=== PATIENT | male | born 1965 | race Caucasian/White ===

== ENCOUNTER 2022-10-14 09:23 | Inpatient (IN) | payer OTHER, SELFPAY ==
[2022-10-14] VITALS (28 sets, daily range): BP systolic 81–133; BP diastolic 45–70; PULSE 78–107; RESP 16–26; TEMP 36.4–38; O2SAT 86–95; BMI 37.3; BMI 31.8
--- NOTE | 2022-10-14 10:02 | ED_ITS ---
HPI - General Adult General Time Seen by Provider: 10:03 Date Seen: 10/14/22 Chief complaint: Neuro Symptoms/Altered Deficit Stated complaint: Confused Time Seen by Provider: 10/14/22 10:02 Source: patient and RN notes reviewed Mode of arrival: ambulatory Limitations: no limitations History of Present Illness HPI narrative: Patient is a 57-year-old male that is brought in by his sister for concern of increasing confusion and sleepiness in the setting of head and neck squamous cell carcinoma. He completed radiation today at the [facility] across the road, was supposed to have chemotherapy after that but they did not feel he was well enough and the radiation center referred him here. He states he has some underlying chest discomfort that has been there since after starting radiation last week. He had head neck dissection cancer removal in it trach in August for this surgery. Chemotherapy and radiation therapy commenced last week per report. He denies any difficulty breathing but nursing staff noted he was 88% on room air on arrival. His sister states he is not on oxygen at home. His systolic blood pressure was 91 when I came in to see him. He really has not been eating or drinking much per report but no nausea, vomiting, diarrhea, urinary symptoms noted. They note that he may have some oral thrush again. He has 2 oncology notes in our system which were briefly reviewed. He has not drank any alcohol in a couple of days his he has not been feeling good enough. Baseline does drink a moderate amount per report. He has been taking some pain medicines as well as a benzodiazepine. Does not sound like doses have been increased. Related Data Home Medications Medication Instructions Recorded Confirmed amlodipine 10 mg tablet 10 mg PO QDAY 09/26/22 10/07/22 escitalopram oxalate 10 mg tablet 10 mg PO QDAY 09/26/22 10/07/22 famotidine 40 mg/5 mL (8 mg/mL) 5 ml PO QDAY 09/26/22 10/07/22 oral suspension insulin NPH-regular 70-30 U-100 subcut 09/26/22 10/07/22 insulin 100 unit/mL subcutaneous pen (Novolin 70-30 FlexPen U-100 Insulin) isosorbide mononitrate 60 mg mg PO 09/26/22 10/07/22 tablet,extended release 24 hr lactulose 10 gram/15 mL oral 15 ml PO PRN 09/26/22 10/07/22 solution lancets (OneTouch UltraSoft #100 ea 09/26/22 10/07/22 Lancets) lisinopril 10 mg tablet 10 mg PO QDAY 09/26/22 10/07/22 lorazepam 1 mg tablet 1 mg PO PRN 09/26/22 10/07/22 metformin 500 mg tablet,extended mg PO 09/26/22 10/07/22 release 24 hr metoprolol succinate 100 mg mg PO 09/26/22 10/07/22 tablet,extended release 24 hr morphine 15 mg tablet,extended ea PO 09/26/22 10/07/22 release nystatin 100,000 unit/mL oral ml PO QID PRN 09/26/22 10/07/22 suspension oxycodone 5 mg tablet 5 mg PO Q6H PRN 09/26/22 10/07/22 Previous Rx's Medication Instructions Recorded ondansetron 8 mg disintegrating 8 mg PO Q8H PRN nausea and 09/26/22 tablet vomiting #30 tabs prochlorperazine maleate 10 mg 10 mg PO TID PRN nausea and 09/26/22 tablet (Compazine) vomiting #30 tabs Allergies Allergy/AdvReac Type Severity Reaction Status Date / Time No Known Drug Allergies Allergy Verified 10/14/22 09:40 Review of Systems Status of ROS: Reports: 10 or more systems reviewed and unremarkable except as noted in History and below [facility] Medical History (Updated 10/14/22 @ 12:26 by Doretha Salcedo MD) Cancer of oral cavity Cellulitis of arm Chronic pain syndrome COPD (chronic obstructive pulmonary disease) Diabetes mellitus HTN (hypertension) Hyperlipidemia Surgical History (Updated 09/27/22 @ 16:43 by Sarah Bryant APRN) H/O lumbosacral spine surgery H/O skin graft H/O umbilical hernia repair History of carpal tunnel release S/P cervical spinal fusion S/P eye surgery S/P partial glossectomy Status post tracheostomy Social History Smoking Status: Current every day smoker What tobacco products do you use: cigarettes Smoking packs per day: 0.5 Smoking cigarettes per day: 10.0 Do you use any of these nicotine containing products: None Second hand tobacco smoke exposure: No How often do you have a drink containing alcohol: 4 or more times a week How many standard drinks containing alcohol do you have on a typical day: 7 to 9 How often do you have six or more drinks on one occasion: Daily or almost daily AUDIT-C Alcohol total score: 11 Non-prescribed substance use: marijuana (any form) service: No Exam Const: Vital Signs, click to edit/add: Vital Signs - 24 hr 10/14/22 09:40 10/14/22 10:43 10/14/22 10:33 Temperature 97.5 F L Pulse Rate 93 Pulse Rate [Pulse Oximeter] 107 H Respiratory Rate 16 Blood Pressure Blood Pressure [Ri ght Upper Arm] 101/55 L Pulse Oximetry 88 89 86 L Oxygen Delivery Me thod Room Air Nasal Cannula Oxygen Flow Rate 3 10/14/22 10:45 10/14/22 10:46 10/14/22 11:00 Temperature Pulse Rate 93 95 89 Pulse Rate [Pulse Oximeter] Respiratory Rate Blood Pressure 90/47 L Blood Pressure [Ri ght Upper Arm] Pulse Oximetry 90 90 92 Oxygen Delivery Me thod Nasal Cannula Nasal Cannula Nasal Cannula Oxygen Flow Rate 3 3 3 10/14/22 11:02 10/14/22 11:15 10/14/22 11:16 Temperature Pulse Rate 92 94 96 Pulse Rate [Pulse Oximeter] Respiratory Rate Blood Pressure 81/51 L 94/65 Blood Pressure [Ri ght Upper Arm] Pulse Oximetry 93 94 94 Oxygen Delivery Me thod Nasal Cannula Oxygen Flow Rate 3 10/14/22 11:17 10/14/22 11:30 10/14/22 11:32 Temperature Pulse Rate 99 92 90 Pulse Rate [Pulse Oximeter] Respiratory Rate Blood Pressure 91/45 L Blood Pressure [Ri ght Upper Arm] Pulse Oximetry 94 93 93 Oxygen Delivery Me thod Oxygen Flow Rate 10/14/22 11:45 10/14/22 11:46 10/14/22 11:58 Temperature Pulse Rate 78 95 98 Pulse Rate [Pulse Oximeter] Respiratory Rate Blood Pressure 89/61 L 87/51 L Blood Pressure [Ri ght Upper Arm] Pulse Oximetry 92 93 91 Oxygen Delivery Me thod Oxygen Flow Rate 10/14/22 12:00 10/14/22 12:01 Temperature Pulse Rate 93 90 Pulse Rate [Pulse Oximeter] Respiratory Rate Blood Pressure 102/64 Blood Pressure [Ri ght Upper Arm] Pulse Oximetry 91 91 Oxygen Delivery Me thod Oxygen Flow Rate Documenting provider has reviewed patient's vital signs: yes Common normals: no apparent distress, average body habitus, oriented x3 and no limitations General appearance: ill appearing and frail appearing Other: Seems very sleepy but is easily arousable. HENMT: Common normals: normocephalic, head/scalp atraumatic, hearing grossly normal bilaterally and external ears normal Head and scalp: normocephalic and atraumatic External ear: external ears normal Other: Dry mucosa with alteration of the oral anatomy, peers part of tongue is gone. Mucosa is dry but there certainly is some whitish exudate that could be thrush. Eye: Common normals: PERRL, EOMs intact bilaterally, conjunctivae normal and no scleral icterus Conjunctiva: conjunctiva(e) normal Pupil: PERRL Neck & C-Spine: Common normals: full ROM, no lymphadenopathy, supple, no meningeal signs, no JVD and thyroid normal Thyroid: thyroid normal Chest: Common normals: inspection of chest normal and palpation of chest normal Resp: Common normals: normal respiratory effort, no retractions, no use of accessory muscles and clear to auscultation bilaterally (Anteriorly only, patient was too weak to sit up and I was in the room alone) Auscultation: clear to auscultation bilaterally (Anteriorly only, patient was too weak to sit up and I was in the room alone) Cardio: Common normals: no JVD, regular rhythm, S1 normal heart sound, S2 normal heart sound, no gallops, no clicks and no murmurs Rate: tachycardic Rhythm: regular rhythm Heart sounds: S1 normal and S2 normal GI: Common normals: Normal to inspection, nondistended, normoactive bowel sounds present, soft to palpation, non-tender, no hepatosplenomegaly and no masses Palpation: soft and no hepatosplenomegaly Neuro: Common normals: oriented x3, moves all extremities, no focal motor deficits and no sensory deficits noted Meningeal signs: no meningeal signs Course Course Hospital Course: This patient is presenting hypotensive, sleepy. He certainly is on medicines that could cause some of this but need to rule out infection. He really has nothing specific. He states he does hurt in his chest some but that is been ongoing after the radiation. Radiation pneumonitis is a possibility and possibly poor oral oral intake contributing to worsening hemodynamic status. We will proceed with infection workup however. Reevaluation(s) Reevaluation #1: Have reviewed with patient and his sister that I think there is pneumonia developing, his blood pressure is currently low at this time 89/61. His pulse is 97 which is improved, O2 sats 93% on 3 L nasal cannula. I have already ordered vancomycin and Zosyn, will alert the nursing staff to get this ordered. I will order another L of normal saline over 1 hour. Time: 11:50 Reevaluation #2: Patient is just receiving his 2 L of fluid right now. With sitting up and attempt to urinate. Antibiotics have not been started as nursing staff I believe was waiting to obtain urine. Patient states he does not have to urinate. Advise nursing staff that I do want patient to have his antibiotics started. We certainly have a focus on his chest x-ray with pneumonia. With changes of sepsis, it is imperative that we get the antibiotics started even if we do not have the urine. I calculate his 30 mils per kilos volume to be about 3500, he will have to have the rest of this instilled on the hospital floor as he is leaving shortly. Followup lactate will need to be done there as well. Time: 12:35 Consultations Consultation #1: Have spoken with the hospitalist Dr. Russ. We have discussed the situation. There are changes on his right chest x-ray that would signify pneumonia to me. Will await Radiology over-read. D-dimer is still pending. He may need a chest CT PE protocol. Otherwise, will initiate antibiotics with vancomycin and Zosyn to cover for sepsis with pneumonia as a source. May need to consider steroids but will leave that up to the hospitalist. Radiation pneumonitis certainly could be compounding the situation. Time: 11:44 Vital Signs Vital signs: Initial Vital Signs Temperature 97.5 F L 10/14/22 09:40 Temperature Source Temporal Artery Scan 10/14/22 09:40 Pulse Rate 107 H 10/14/22 09:40 Pulse Rhythm 10/14/22 09:40 Pulse Strength 3+ Normal 10/14/22 09:40 Respiratory Rate 16 10/14/22 09:40 Blood Pressure 101/55 L 10/14/22 09:40 Blood Pressure Mean 70 10/14/22 09:40 Blood Pressure Position Sitting 10/14/22 09:40 Pulse Oximetry 88 10/14/22 09:40 Oxygen Delivery Method 10/14/22 09:40 Vital Signs Temperature 97.5 F L 10/14/22 09:40 Pulse Rate 107 H 10/14/22 09:40 Respiratory Rate 16 10/14/22 09:40 Blood Pressure 101/55 L 10/14/22 09:40 Pulse Oximetry 88 10/14/22 09:40 Oxygen Delivery Method 10/14/22 09:40 Temperature 97.5 F L 10/14/22 09:40 Pulse Rate 92 10/14/22 12:44 Respiratory Rate 16 10/14/22 09:40 Blood Pressure 102/64 10/14/22 12:01 Pulse Oximetry 92 10/14/22 12:44 Oxygen Delivery Method 10/14/22 11:02 Oxygen Flow Rate 3 10/14/22 11:02 Medical Decision Making Lab Data Labs: Lab Results 10/14/22 10/14/22 10/14/22 Range/Units 10:10 10:10 10:10 WBC 11.64 H (4.50-11.00) K/uL RBC 4.39 (4.30-5.90) m/uL Hgb 13.3 L (13.5-17.5) gm/dL Hct 40.6 (37.0-53.0) % MCV 93 (80-100) fL MCH 30 (26-34) pg MCHC 33 (32-36) gm/dL RDW Coeff of Ivan 12.4 (11.5-15.5) % Plt Count 268 (140-440) K/uL Neut % (Auto) 80.0 H (42.0-72.0) % Lymph % (Auto) 7.6 L (20-44) % [place] % (Auto) 11.9 H (0.0-11.0) % Eos % (Auto) 0.0 (0.0-7.0) % Baso % (Auto) 0.1 (0.0-3.0) % Neut # (Auto) 9.30 H (1.7-7.0) K/uL Lymph # (Auto) 0.90 (0.90-2.90) K/uL [place] # (Auto) 1.40 H (0.00-0.90) K/UL Eos # (Auto) 0.00 (0.00-0.50) K/uL Baso # (Auto) 0.00 (0.00-0.30) K/uL Abs Immat Gran (auto) 0.00 (0.00-0.30) K/uL Imm/Tot Granulo (auto) 0.4 % D-Dimer Quant (PE/DVT) 0.72 H (0.00-0.50) ug/ml VBG pH (7.32-7.43) VBG pCO2 (40-50) mmHG VBG pO2 (25-47) mmHG VBG HCO3 (21-28) mmol/L Sodium 130 L (135-149) mmol/L Potassium 4.8 (3.6-5.1) mmol/L Chloride 92 L (96-114) mmol/L Carbon Dioxide 30 (20-32) mmol/L BUN 21 (7-30) mg/dL Creatinine 0.7 (0.5-1.5) mg/dL Estimated Creat Clear 117.32 Estimated GFR 106 ml/min Glucose 319 H (60-115) mg/dL Lactate (0.5-1.9) mmol/L Calcium 9.5 (8.4-10.6) mg/dL Magnesium (1.5-2.6) mg/dL Total Bilirubin 0.8 (0.1-1.5) mg/dL AST 20 (12-35) U/L ALT 25 (4-50) U/L Alkaline Phosphatase 78 (40-150) U/L C-Reactive Protein 8.7 H (0.5-1.0) mg/dL NT-Pro-B Natriuret Pep (0-125) PG/mL Total Protein 7.0 (6.0-8.3) g/dL Albumin 4.0 (3.3-5.0) g/dL Procalcitonin (<0.50) ng/mL Ethyl Alcohol (0.01-0.03) % SARS-CoV-2 (PCR) (Negative) Influenza Type A (PCR) (Negative) Influenza Type B (PCR) (Negative) RSV (PCR) (Negative) POC Troponin I (0.01-0.04) ng/ml 10/14/22 10/14/22 10/14/22 Range/Units 10:10 10:10 10:10 WBC (4.50-11.00) K/uL RBC (4.30-5.90) m/uL Hgb (13.5-17.5) gm/dL Hct (37.0-53.0) % MCV (80-100) fL MCH (26-34) pg MCHC (32-36) gm/dL RDW Coeff of Ivan (11.5-15.5) % Plt Count (140-440) K/uL Neut % (Auto) (42.0-72.0) % Lymph % (Auto) (20-44) % [place] % (Auto) (0.0-11.0) % Eos % (Auto) (0.0-7.0) % Baso % (Auto) (0.0-3.0) % Neut # (Auto) (1.7-7.0) K/uL Lymph # (Auto) (0.90-2.90) K/uL [place] # (Auto) (0.00-0.90) K/UL Eos # (Auto) (0.00-0.50) K/uL Baso # (Auto) (0.00-0.30) K/uL Abs Immat Gran (auto) (0.00-0.30) K/uL Imm/Tot Granulo (auto) % D-Dimer Quant (PE/DVT) (0.00-0.50) ug/ml VBG pH 7.427 (7.32-7.43) VBG pCO2 49 (40-50) mmHG VBG pO2 38.3 (25-47) mmHG VBG HCO3 32 H (21-28) mmol/L Sodium (135-149) mmol/L Potassium (3.6-5.1) mmol/L Chloride (96-114) mmol/L Carbon Dioxide (20-32) mmol/L BUN (7-30) mg/dL Creatinine (0.5-1.5) mg/dL Estimated Creat Clear Estimated GFR ml/min Glucose (60-115) mg/dL Lactate 1.9 (0.5-1.9) mmol/L Calcium (8.4-10.6) mg/dL Magnesium 1.5 (1.5-2.6) mg/dL Total Bilirubin (0.1-1.5) mg/dL AST (12-35) U/L ALT (4-50) U/L Alkaline Phosphatase (40-150) U/L C-Reactive Protein (0.5-1.0) mg/dL NT-Pro-B Natriuret Pep 167 H (0-125) PG/mL Total Protein (6.0-8.3) g/dL Albumin (3.3-5.0) g/dL Procalcitonin 1.58 H (<0.50) ng/mL Ethyl Alcohol < 0.01 L (0.01-0.03) % SARS-CoV-2 (PCR) Negative SARS-CoV-2 (Negative) Influenza Type A (PCR) Negative PCR FLU A (Negative) Influenza Type B (PCR) Negative PCR FLU B (Negative) RSV (PCR) Negative PCR RSV (Negative) POC Troponin I (0.01-0.04) ng/ml 10/14/22 Range/Units 10:43 WBC (4.50-11.00) K/uL RBC (4.30-5.90) m/uL Hgb (13.5-17.5) gm/dL Hct (37.0-53.0) % MCV (80-100) fL MCH (26-34) pg MCHC (32-36) gm/dL RDW Coeff of Ivan (11.5-15.5) % Plt Count (140-440) K/uL Neut % (Auto) (42.0-72.0) % Lymph % (Auto) (20-44) % [place] % (Auto) (0.0-11.0) % Eos % (Auto) (0.0-7.0) % Baso % (Auto) (0.0-3.0) % Neut # (Auto) (1.7-7.0) K/uL Lymph # (Auto) (0.90-2.90) K/uL [place] # (Auto) (0.00-0.90) K/UL Eos # (Auto) (0.00-0.50) K/uL Baso # (Auto) (0.00-0.30) K/uL Abs Immat Gran (auto) (0.00-0.30) K/uL Imm/Tot Granulo (auto) % D-Dimer Quant (PE/DVT) (0.00-0.50) ug/ml VBG pH (7.32-7.43) VBG pCO2 (40-50) mmHG VBG pO2 (25-47) mmHG VBG HCO3 (21-28) mmol/L Sodium (135-149) mmol/L Potassium (3.6-5.1) mmol/L Chloride (96-114) mmol/L Carbon Dioxide (20-32) mmol/L BUN (7-30) mg/dL Creatinine (0.5-1.5) mg/dL Estimated Creat Clear Estimated GFR ml/min Glucose (60-115) mg/dL Lactate (0.5-1.9) mmol/L Calcium (8.4-10.6) mg/dL Magnesium (1.5-2.6) mg/dL Total Bilirubin (0.1-1.5) mg/dL AST (12-35) U/L ALT (4-50) U/L Alkaline Phosphatase (40-150) U/L C-Reactive Protein (0.5-1.0) mg/dL NT-Pro-B Natriuret Pep (0-125) PG/mL Total Protein (6.0-8.3) g/dL Albumin (3.3-5.0) g/dL Procalcitonin (<0.50) ng/mL Ethyl Alcohol (0.01-0.03) % SARS-CoV-2 (PCR) (Negative) Influenza Type A (PCR) (Negative) Influenza Type B (PCR) (Negative) RSV (PCR) (Negative) POC Troponin I 0.01 (0.01-0.04) ng/ml Imaging Data Chest x-ray: Attestation: I have reviewed the pertinent imaging results. My impression: Right-sided pneumonia with infiltrate on my preliminary read. Radiologist's impression: Patient: TRACI LOPEZ Facility:?[facility] Patient ID:?[id number] Site Patient ID:?[id number]. Site :?[id number] Study:?XRay Chest Portable 1v-10/14/2022 11:02:22 AM Ordering Physician:Krys Coyne Final Report: Indication: Altered mental status. Technique: Chest 1 view. Comparison: 09/09/2022. Findings/Impression: Cardiovascular and mediastinum: Heart size and vasculature are normal in caliber and appearance. Lungs and pleural space: Acute right lower lobe infiltrate consistent with pneumonia. Remainder of the lungs and pleural spaces are clear. Bones and soft tissues: No acute findings. Dictated by Wayne Reynolds MD @ 10/14/2022 11:48:05 AM (Electronic Signature) ECG Data Attestation: I personally reviewed and interpreted this ECG as follows: (Sinus rhythm, 95 beats per minute, no acute change noted.) Prior ECG tracings: not available for review Critical Care Time Critical Care Time Critical Care Time: No Discharge Plan Discharge Clinical Impression: Sepsis, Pneumonia Patient Disposition: Admitted As Inpatient
--- NOTE | 2022-10-14 10:07 | CRLHL7_ITS ---
For Patients: As a result of the Century Cures Act, medical imaging exams and procedure reports are released immediately into your electronic medical record. You may view this report before your referring provider. If you have questions, please contact your health care provider. Indication: Altered mental status. Technique: Chest 1 view. Comparison: 09/09/2022. Findings/Impression: Cardiovascular and mediastinum: Heart size and vasculature are normal in caliber and appearance. Lungs and pleural space: Acute right lower lobe infiltrate consistent with pneumonia. Remainder of the lungs and pleural spaces are clear. Bones and soft tissues: No acute findings. Dictated by Wayne Reynolds MD @ 10/14/2022 11:48:05 AM (Electronically Signed)
[2022-10-14 10:34] LABS: HCO3 VBG 32 mmol/L (21-28); Lactate* 1.9 mmol/L (0.5-1.9); PCO2 VBG 49 mmHG (40-50); PO2 VBG 38.3 mmHG (25-47); pH VBG 7.427 (7.32-7.43)
[2022-10-14] MEDS: 0.9 % SODIUM CHLORIDE 1000 ml 1,000 ML 500 ML IV (10:35)
[2022-10-14 10:46] LABS: Basophils Percent Auto 0.1 % (0.0-3.0); Hematocrit 40.6 % (37.0-53.0); Hemoglobin* 13.3 gm/dL (13.5-17.5); Immature Granulocytes Pct Auto 0.4 %; Lymphocytes Percent Auto 7.6 % (20-44); Mean Corpuscular HGB Conc 33 gm/dL (32-36); Mean Corpuscular Hemoglobin 30 pg (26-34); Mean Corpuscular Volume 93 fL (80-100); Monocytes Percent Auto 11.9 % (0.0-11.0); Platelet Count* 268 K/uL (140-440); RDW Coefficient of Variation % 12.4 % (11.5-15.5); Red Blood Count 4.39 m/uL (4.30-5.90); White Blood Count* 11.64 K/uL (4.50-11.00)
[2022-10-14 10:56] LABS: Troponin, Point-of-Care* 0.01 ng/ml (0.01-0.04)
[2022-10-14 11:04] LABS: Slide Review Reflex No
[2022-10-14 11:14] LABS: Chloride* 92 mmol/L (96-114); PCR FLU A Negative PCR FLU A (Negative); PCR FLU B Negative PCR FLU B (Negative); PCR RSV Negative PCR RSV (Negative); Sodium* 130 mmol/L (135-149)
[2022-10-14 11:15] LABS: Potassium* 4.8 mmol/L (3.6-5.1)
[2022-10-14 11:16] LABS: SARS PCR* Negative SARS-CoV-2 (Negative)
[2022-10-14 11:17] LABS: Bilirubin Total* 0.8 mg/dL (0.1-1.5); Creatinine* 0.7 mg/dL (0.5-1.5); Est. Creatinine Clearance* 117.32; Estimated Glomerular Filt Rate 106 ml/min
[2022-10-14 11:18] LABS: Alanine Aminotransferase* 25 U/L (4-50); Alkaline Phosphatase* 78 U/L (40-150); Aspartate Amino Transferase* 20 U/L (12-35); Blood Urea Nitrogen* 21 mg/dL (7-30); Calcium* 9.5 mg/dL (8.4-10.6); Carbon Dioxide* 30 mmol/L (20-32); Glucose* 319 mg/dL (60-115)
[2022-10-14 11:19] LABS: Magnesium* 1.5 mg/dL (1.5-2.6)
[2022-10-14 11:21] LABS: C Reactive Protein* 8.7 mg/dL (0.5-1.0)
[2022-10-14 11:27] LABS: NT Pro B Type NatriureticPept* 167 PG/mL (0-125)
[2022-10-14 11:29] LABS: Ethanol* < 0.01 % (0.01-0.03)
[2022-10-14 11:34] LABS: Procalcitonin* 1.58 ng/mL (<0.50)
[2022-10-14] MEDS: 0.9 % SODIUM CHLORIDE 1000 ml 1,000 ML IV ×2 (12:02→15:33)
[2022-10-14 12:34] LABS: D Dimer Quantitative* 0.72 ug/ml (0.00-0.50)
[2022-10-14] MEDS: PIPERACILLIN/TAZOBACTAM 3.375 GM in 0.9 % SODIUM CHLORIDE Mini-bag 100 ML IVPB ×2 (12:39→18:28)
--- NOTE | 2022-10-14 12:51 | ED.NURSE ---
Pt and belongings brought to [id number]
--- NOTE | 2022-10-14 13:19 | P.IMHP_ITS ---
Hospitalist- H&P: HPI History of Present Illness Time Seen by Provider: 13:15 Date Seen: 10/14/22 Chief complaint: Confused Narrative: Rafa Denis is a 57 year old male who recently started chemotherapy and radiation for squamous cell carcinoma of the head and neck who has had increasing confusion and sleepiness. He slept through most of the interview and his and sister provided history. 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 He had 16 positive nodes with ECG and close margins in addition to multifocal tumor with PNII/LVI. He started single agent cisplatin on 10/08/2022. He has had decreased oral intake since his surgery. Notably he also stopped drinking alcohol and using tobacco when he had surgery. He has not had either of those substances since then. He had to be on antibiotics recently for infection of his skin graft on his right forearm. That was doing better and he was continuing to do dressing changes for that. Especially over this last week he has become increasingly sleepy. His notes that this morning he was very confused when he woke up. That got a bit better and he went to radiation today and completed his therapy. He was very sleepy however and so was sent over to the emergency department. He has not had any nausea, vomiting, diarrhea, chest pain, shortness a breath, or urinary symptoms. He has had more difficulty eating and swallowing because of pain in his mouth and throat. His notes that he is just been sucking on the meat rather than actually eating it. She notes that he has had a dramatic decrease in the amount that he has eaten over the last few days. Review of Systems Status of ROS: Reports: unobtainable due to mental status Const: Reports: fever and fatigue ENMT: Reports: throat pain, difficulty swallowing and mouth pain Cardio: Denies: chest pain or shortness of breath with exertion Resp: Denies: shortness of breath, cough or wheezing GI: Reports: difficulty swallowing : Denies: painful urination, urinary frequency or urinary urgency Integ/Breast: Denies: rash Neuro: Reports: slurred speech (since mouth surgery) Endo: Reports: fatigue Allergy/Immuno: Denies: wheezing PFSH [facility] Medical History (Updated 10/14/22 @ 17:42 by Debra Russ MD) Alcoholism Asthma Blind right eye CAD (coronary artery disease) Cancer of oral cavity Cellulitis of arm Charcot's joint of left foot Chest pain Chronic pain syndrome Class 1 obesity Congenital medullary sponge kidney COPD (chronic obstructive pulmonary disease) Diabetes mellitus, type II HTN (hypertension) Hyperlipidemia Tobacco abuse Surgical History H/O lumbosacral spine surgery H/O skin graft H/O umbilical hernia repair History of carpal tunnel release S/P cervical spinal fusion S/P eye surgery S/P partial glossectomy Status post tracheostomy Family History (Updated 10/14/22 @ 17:30 by Debra Russ MD) Mother Cancer High blood pressure Father Diabetes Heart disease High blood pressure Stroke Social History (Updated 10/14/22 @ 17:32 by Debra Russ MD) Narrative: Lives with . Has 6 sisters, one a few years ago of covid. They are very close. Quit EtOH and tobacco use in aug 2022. Daily marajuana u se. Advanced directives state that he wants to be DNR/DNI. His and sister think chemo and radiation have been too much for him and are not sure if he should continue. Highest level of school completed/degree received: some college, no degree Smoking Status: Current every day smoker What tobacco products do you use: cigarettes Smoking packs per day: 0.5 Smoking cigarettes per day: 10.0 Do you use any of these nicotine containing products: None Second hand tobacco smoke exposure: No How often do you have a drink containing alcohol: 4 or more times a week How many standard drinks containing alcohol do you have on a typical day: 7 to 9 How often do you have six or more drinks on one occasion: Daily or almost daily AUDIT-C Alcohol total score: 11 Non-prescribed substance use: marijuana (any form) service: No Meds Home Medications and Allergies Home Medications Medication Instructions Recorded Confirmed Type amlodipine 10 mg tablet 10 mg PO DAILY 09/26/22 10/14/22 History escitalopram oxalate 10 mg tablet 10 mg PO DAILY 09/26/22 10/14/22 History famotidine 40 mg/5 mL (8 mg/mL) 5 ml PO DAILY 09/26/22 10/14/22 History oral suspension insulin NPH-regular 70-30 U-100 25 unit subcut BIDWM 09/26/22 10/14/22 History insulin 100 unit/mL subcutaneous pen (Novolin 70-30 FlexPen U-100 Insulin) isosorbide mononitrate 60 mg 60 mg PO DAILY 09/26/22 10/14/22 History tablet,extended release 24 hr lancets (OneTouch UltraSoft #100 ea 09/26/22 10/07/22 History Lancets) lorazepam 1 mg tablet 1 mg PO DAILY PRN 09/26/22 10/14/22 History metformin 500 mg tablet,extended 2,000 mg PO DAILY 09/26/22 10/14/22 History release 24 hr metoprolol succinate 100 mg 100 mg PO DAILY 09/26/22 10/14/22 History tablet,extended release 24 hr morphine 15 mg tablet,extended 15 mg PO BID 09/26/22 10/14/22 History release nystatin 100,000 unit/mL oral 5 ml PO QID 09/26/22 10/14/22 History suspension oxycodone 5 mg tablet 5 mg PO Q6H PRN 09/26/22 10/14/22 History atorvastatin 40 mg tablet 40 mg PO HS 10/14/22 10/14/22 History lisinopril 40 mg tablet 40 mg PO DAILY 10/14/22 10/14/22 History Allergies Allergy/AdvReac Type Severity Reaction Status Date / Time No Known Drug Allergies Allergy Verified 10/14/22 09:40 Exam Narrative: Exam Narrative: General: Sleepy, a little restless at times. Arousable, but falls asleep again fairly quickly. Confused. HEENT: Normocephalic atraumatic, pupils equally round and reactive to light and accommodation. Oropharynx abnormal: Surgical resection of part of the tongue noted, all tissues appear mildly edematous, erythematous, raw and with multiple white patches throughout the mouth and throat. Mucous membranes are slightly dry. No cervical lymphadenopathy, thyromegaly or carotid bruits. Tracheostomy hole present at base of neck anteriorly. No JVD. Cardiovascular: Regular rate and rhythm. No murmurs, gallops, or rubs. Chest: No increased work of breathing. Tachypneic, rhonchi throughout, worse in the right lung field. Abdomen: Obese. Bowel sounds present. Soft, nondistended, nontender. No hepatosplenomegaly or masses. Extremities: No edema, no cyanosis or clubbing. Right forearm skin graft is not yet healed. Some granulation tissue noted. Some whitish tissue at the base noted. Mildly erythematous around the edges, nontender. Skin: No jaundice, no pallor. Neuro: As above. There are no focal deficits. No facial asymmetry. Moves all extremities. Const: Vital Signs, click to edit/add: Vital Signs - 24 hr 10/14/22 09:40 10/14/22 10:43 10/14/22 10:33 Temperature 97.5 F L Pulse Rate 93 Pulse Rate [Pulse Oximeter] 107 H Respiratory Rate 16 Blood Pressure Blood Pressure [Ri ght Arm] Blood Pressure [Ri ght Upper Arm] 101/55 L Pulse Oximetry 88 89 86 L Oxygen Delivery Me thod Room Air Nasal Cannula Oxygen Flow Rate 3 10/14/22 10:45 10/14/22 10:46 10/14/22 11:00 Temperature Pulse Rate 93 95 89 Pulse Rate [Pulse Oximeter] Respiratory Rate Blood Pressure 90/47 L Blood Pressure [Ri ght Arm] Blood Pressure [Ri ght Upper Arm] Pulse Oximetry 90 90 92 Oxygen Delivery Me thod Nasal Cannula Nasal Cannula Nasal Cannula Oxygen Flow Rate 3 3 3 10/14/22 11:02 10/14/22 11:15 10/14/22 11:16 Temperature Pulse Rate 92 94 96 Pulse Rate [Pulse Oximeter] Respiratory Rate Blood Pressure 81/51 L 94/65 Blood Pressure [Ri ght Arm] Blood Pressure [Ri ght Upper Arm] Pulse Oximetry 93 94 94 Oxygen Delivery Me thod Nasal Cannula Oxygen Flow Rate 3 10/14/22 11:17 10/14/22 11:30 10/14/22 11:32 Temperature Pulse Rate 99 92 90 Pulse Rate [Pulse Oximeter] Respiratory Rate Blood Pressure 91/45 L Blood Pressure [Ri ght Arm] Blood Pressure [Ri ght Upper Arm] Pulse Oximetry 94 93 93 Oxygen Delivery Me thod Oxygen Flow Rate 10/14/22 11:45 10/14/22 11:46 10/14/22 11:58 Temperature Pulse Rate 78 95 98 Pulse Rate [Pulse Oximeter] Respiratory Rate Blood Pressure 89/61 L 87/51 L Blood Pressure [Ri ght Arm] Blood Pressure [Ri ght Upper Arm] Pulse Oximetry 92 93 91 Oxygen Delivery Me thod Oxygen Flow Rate 10/14/22 12:00 10/14/22 12:01 10/14/22 12:44 Temperature Pulse Rate 93 90 92 Pulse Rate [Pulse Oximeter] Respiratory Rate Blood Pressure 102/64 Blood Pressure [Ri ght Arm] Blood Pressure [Ri ght Upper Arm] Pulse Oximetry 91 91 92 Oxygen Delivery Me thod Oxygen Flow Rate 10/14/22 10:08 10/14/22 13:07 Temperature 100.4 F H Pulse Rate Pulse Rate [Pulse Oximeter] Respiratory Rate 26 H Blood Pressure Blood Pressure [Ri ght Arm] 108/60 Blood Pressure [Ri ght Upper Arm] Pulse Oximetry 93 92 Oxygen Delivery Me thod Nasal Cannula Nasal Cannula Oxygen Flow Rate 3 Hospitalist - H&P: Result Labs Labs: Short CBC 10/14/22 Range/Units 10:10 WBC 11.64 H (4.50-11.00) K/uL Hgb 13.3 L (13.5-17.5) gm/dL Hct 40.6 (37.0-53.0) % Plt Count 268 (140-440) K/uL BMP 10/14/22 10:10 Sodium 130 L Potassium 4.8 Chloride 92 L Carbon Dioxide 30 BUN 21 Creatinine 0.7 Glucose 319 H Calcium 9.5 Liver Function 10/14/22 Range/Units 10:10 Total Bilirubin 0.8 (0.1-1.5) mg/dL AST 20 (12-35) U/L ALT 25 (4-50) U/L Alkaline Phosphatase 78 (40-150) U/L Albumin 4.0 (3.3-5.0) g/dL 10/14/2022 10:31 a.m. EKG: Normal sinus rhythm, 95 beats per minute. Normal EKG. Ordering Physician: Doretha Salcedo M.D. Date of Service: 10/14/22 Procedure(s): XR chest 1V portable Accession Number(s): [id number] cc: Shanae Swanson PA-C; Doretha Salcedo M.D.~ For Patients: As a result of the Cures Act, medical imaging exams and procedure reports are released immediately into your electronic medical record. You may view this report before your referring provider. If you have questions, please contact your health care provider. Indication: Altered mental status. Technique: Chest 1 view. Comparison: 09/09/2022. Findings/Impression: Cardiovascular and mediastinum: Heart size and vasculature are normal in caliber and appearance. Lungs and pleural space: Acute right lower lobe infiltrate consistent with pneumonia. Remainder of the lungs and pleural spaces are clear. Bones and soft tissues: No acute findings. Dictated by Wayne Reynolds MD @ 10/14/2022 11:48:05 AM (Electronically Signed) Assessment and Plan Assessment and plan (1) Sepsis: Status: Acute Assessment and Plan: Criteria for severe sepsis: Febrile illness, heart rate greater than 90, respiratory rate greater than 20, systolic blood pressure less than 90. Lactate is already within normal limits. I do not think we need to draw another 1. Prolactin drawn and elevated. Will draw daily x3. Blood cultures done in the emergency department. Broad-spectrum antibiotics started in emergency department. Patient is given 2 L IV fluids in the emergency department. Will give another L to complete 30 mL/kilogram. Will admit to CCU status. Since his blood pressure has already normalized, I will hold off on 1:1 nursing care. Source is likely community-acquired pneumonia. Possibly also right forearm cellulitis. He also has thrush, but this would be a very unlikely cause of sepsis. I will add IV Levaquin to his antibiotic regimen. (2) Pneumonia: Problem comment: Acute right lower lobe infiltrate seen on chest x-ray Status: Acute Assessment and Plan: Treat with IV Zosyn, levofloxacin, and vanco per severe sepsis secondary to pneumonia protocol. Deescalate antibiotics as he improves. (3) Cellulitis of arm: Status: Acute Assessment and Plan: Is difficult to tell if this is new or ongoing from before. He was treated for this recently. He will be on antibiotics for sepsis and pneumonia. Will con sult wound care. Continue current dressing changes with Vaseline gauze. (4) Oropharyngeal candidiasis: Status: Acute Assessment and Plan: Start Diflucan 200 mg today then 100 mg p.o. daily (5) Cancer of oral cavity: Problem comment: [id number] Status: Acute (6) Patient on combined chemotherapy and radiation: Status: Acute (7) CAD (coronary artery disease): Problem comment: nonocclusive Status: Chronic Assessment and Plan: Quiescent (8) Daily consumption of alcohol: Problem comment: 7-8 drinks/day, quit when he had cancer surgery Status: Chronic Assessment and Plan: Hold off on CIWA protocol at present because of somnalence. Once patient has become more alert, reassess to see if starting CIWA is appropriate at that time. (9) HTN (hypertension): Status: Chronic Assessment and Plan: Hold all his antihypertensives due to sepsis. (10) Diabetes mellitus, type II: Status: Chronic Assessment and Plan: Hold his usual medications and cover with Levemir and then insulin sliding scale for now since it is unclear how much he will be eating. Plan VTE prophylaxis: Increased risk due to history of current head neck cancer. Start low-dose nightly enoxaparin and SCDs. Hold amlodipine, atorvastatin, isosorbide mononitrate, lisinopril, and metoprolol due to low blood pressures. Hold escitalopram, lorazepam, metformin, morphine, and oxycodone due to somnolence. If he is showing signs of withdrawal or wakes up more by this evening, may need to restart lorazepam and opioids.
[2022-10-14 15:43] LABS: Appearance Urine Clear (Clear); Bilirubin Urine Negative (Negative); Blood Urine Negative (Negative); Color Urine Yellow (Yellow); Glucose Urine 3+ (Negative); Ketones Urine Negative (Negative); Leukocyte Esterase Urine Negative (Negative); Nitrite Urine Negative (Negative); Protein Urine Negative (Negative); Specific Gravity Urine 1.015 (1.000-1.030); Urobilinogen Urine 0.2 (0.2-1.0); pH Urine 5.5 (5.0-8.5)
[2022-10-14 15:56] LABS: RBC Urine 0-2 (0-2); Squamous Epithelial Cell Urine Few (None-Few); WBC Urine 0-2 (0-5)
[2022-10-14] MEDS: levoFLOXacin 750 MG/150 ML 750 MG/150 ML PIGGYBACK 100 MG IVPB (16:30)
[2022-10-14] MEDS: LACTATED RINGERS 1000 ML 1,000 ML 75 ML IV (16:33)
[2022-10-14] MEDS: FLUCONAZOLE 100 MG TABLET 200 MG PO (18:03)
[2022-10-14] MEDS: IPRAT-ALBUT 0.5-2.5 MG/3 ML NEB 1 NEB IH ×2 (18:37→23:38)
[2022-10-14] MEDS: ENOXAPARIN 40 MG/0.4 ML INJ SUBCUT (20:50)
--- NOTE | 2022-10-14 22:35 | PC.NURSE ---
end of shift. pt has been very pleasant. he has a slurred like speech from recent surgery. mouth and throat pain 2-6/10 he is getting po pain meds. he has skin graft area on his right upper thigh and a skin/tendon area at the right wrist. wrist had a dressing change. IV in the right a/c and it accidentally came out and later in was place in the right forearm . tele shows NSR. teds and scds are on and off. he is alert x4. he is tried and sleepy. he has no teeth and is missing part of his tongue. he had chemo and radiation last week and radiation today he was suppose to go to chemo but was sent to ED to get looked at. he is on antibiotics for pnx. nebs and aerobika was started. he is up with sba to bed side. he is restless and is up and down alot. he has no had a drink since his surgery. BS was 177 and 144, he is eating and drinking, but he has trouble with eating since his surgery. he is able to communicate his needs/ he voided and sice i still feel like i have to void. Bladder scan showed 492. straight cath for 500 the cath came out and bladder scan done again and it was 529 straight cath for a 2nd time for 950. 1450 out. he says he has trouble sleeping and only sleeps 2 hours at a time. his and sister and brother in law. where here and are all living and caring. he was on 3 L and then later 2L for cont soa2 90-94. pt complained of thirst and o2 was stopped and Sao2 remains the same on RA. po cares done. he is unit
[2022-10-15] VITALS (8 sets, daily range): BP systolic 125–149; BP diastolic 1–88; PULSE 73–97; RESP 20; TEMP 36.4–37.1; O2SAT 92–95; BMI 31.8
[2022-10-15] MEDS: PIPERACILLIN/TAZOBACTAM 3.375 GM in 0.9 % SODIUM CHLORIDE Mini-bag 100 ML IVPB ×4 (00:10→19:19)
[2022-10-15] MEDS: fentaNYL 100 MCG/2 ML inj 25 MCG IVP ×2 (04:08→06:27)
[2022-10-15] MEDS: IPRAT-ALBUT 0.5-2.5 MG/3 ML NEB 1 NEB IH ×3 (06:28→19:19)
[2022-10-15] MEDS: LACTATED RINGERS 1000 ML 1,000 ML 75 ML IV (06:28)
[2022-10-15 06:41] LABS: Basophils Absolute Auto 0.02 K/uL (0.00-0.30); Basophils Percent Auto 0.3 % (0.0-3.0); Eosinophils Absolute Auto 0.05 K/uL (0.00-0.50); Eosinophils Percent Auto 0.7 % (0.0-7.0); Hematocrit 38.5 % (37.0-53.0); Hemoglobin* 12.7 gm/dL (13.5-17.5); Immature Granulocytes Abs Auto 0.05 K/uL (0.00-0.30); Immature Granulocytes Pct Auto 0.7 %; Mean Corpuscular HGB Conc 33 gm/dL (32-36); Mean Corpuscular Hemoglobin 31 pg (26-34); Mean Corpuscular Volume 93 fL (80-100); Monocytes Percent Auto 12.1 % (0.0-11.0); Neutrophils Percent Auto 74.2 % (42.0-72.0); Platelet Count* 244 K/uL (140-440); RDW Coefficient of Variation % 12.5 % (11.5-15.5); Red Blood Count 4.14 m/uL (4.30-5.90); White Blood Count* 7.53 K/uL (4.50-11.00)
[2022-10-15 06:50] LABS: Slide Review Reflex No
[2022-10-15 07:01] LABS: Albumin* 3.9 g/dL (3.3-5.0); Chloride* 98 mmol/L (96-114); Potassium* 3.9 mmol/L (3.6-5.1); Sodium* 135 mmol/L (135-149)
[2022-10-15 07:03] LABS: Creatinine* 0.4 mg/dL (0.5-1.5); Est. Creatinine Clearance* 205.31; Estimated Glomerular Filt Rate 126 ml/min
[2022-10-15 07:04] LABS: Alanine Aminotransferase* 23 U/L (4-50); Alkaline Phosphatase* 75 U/L (40-150); Aspartate Amino Transferase* 18 U/L (12-35); Bilirubin Total* 0.7 mg/dL (0.1-1.5); Blood Urea Nitrogen* 13 mg/dL (7-30); Carbon Dioxide* 29 mmol/L (20-32); Total Protein* 6.9 g/dL (6.0-8.3)
[2022-10-15 07:05] LABS: Calcium* 9.2 mg/dL (8.4-10.6); Glucose* 150 mg/dL (60-115)
[2022-10-15 07:17] LABS: Procalcitonin* 1.27 ng/mL (<0.50)
[2022-10-15 07:18] LABS: C Reactive Protein* 16.7 mg/dL (0.5-1.0)
--- NOTE | 2022-10-15 07:31 | PC.NURSE ---
Shift note: Pt c/o pain in neck and throat, rates 7-8/10, he can't sleep, repositioning and ice/heat does not help. No PRN medications for pain in eMAR. Aval was called at 0158 with request for pain management, There was no response until 0330. RN called again and was informed that current MD cannot access the system. RN requested another MD to assess the situation, see new orders which came through at [phone]. PRN meds were administer with no change in pain level, will pass on to oncoming shift. Pt c/o fulll bladder pressure this AM, b;ladder scan performed for 760ml, str cathed for 1300ml.
[2022-10-15] MEDS: FLUCONAZOLE 100 MG TABLET PO (09:08)
[2022-10-15] MEDS: OXYCODONE 5 MG TABLET PO ×3 (09:52→23:26)
--- NOTE | 2022-10-15 10:18 | PM.IMPN1 ---
Progress Note: A&P Assessment and plan (1) Sepsis: Status: Acute Assessment and Plan: Severe sepsis has resolved. Blood pressures have normalized. Blood culture x2 on presentation yesterday negative so far. Prolactin is improving. CRP more elevated, but patient is improving. Suspected source is community-acquired pneumonia. Possibly also right forearm cellulitis. Transfer from unit to medical floor today. (2) Pneumonia: Problem details: Acute right lower lobe infiltrate seen on chest x-ray Status: Acute Assessment and Plan: Currently on IV Zosyn, levofloxacin, and vanco per severe sepsis secondary to pneumonia protocol. Since he has improved, deescalate antibiotics. Discontinue levofloxacin and vancomycin. Continue pulmonary toilet with vibratory pep and nebs p.r.n.. (3) Cellulitis of arm: Status: Acute Assessment and Plan: Continue Zosyn as above. Wound care consult pending. Continue current dressing changes with Vaseline gauze and Mepilex. (4) Oropharyngeal candidiasis: Status: Acute Assessment and Plan: Continue Diflucan. 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 (7) CAD (coronary artery disease): Problem details: nonocclusive Status: Chronic Assessment and Plan: Quiescent (8) HTN (hypertension): Status: Chronic Assessment and Plan: Antihypertensives on hold due to recent sepsis. Monitor blood pressures and when he is consistently hypertensive, restart antihypertensives. (9) Diabetes mellitus, type II: Status: Chronic Assessment and Plan: Blood glucoses are within inpatient goal of 140-180. Continue current regimen of Levemir with NovoLog insulin sliding scale. (10) Daily consumption of alcohol: Problem details: 7-8 drinks/day, quit when he had cancer surgery Status: Chronic Assessment and Plan: No evidence of alcohol withdrawal symptoms on my exam today. (11) Insomnia: Status: Acute Assessment and Plan: Start melatonin. (12) Urinary retention: Status: Acute Assessment and Plan: Continue command void with straight cath prn. Start flomax. (13) Constipation: Status: Acute Assessment and Plan: Start senna scheduled and mirilax prn Plan VTE prophylaxis: Increased risk due to history of current head neck cancer. Start low-dose nightly enoxaparin and SCDs. Continue to hold amlodipine, atorvastatin, isosorbide mononitrate, lisinopril, and metoprolol due to recent low blood pressures from sepsis. MS Shetty restarted last night. Restart oxycodone today. Subjective Time Seen by Provider: 09:30 Date Seen: 10/15/22 Interval history: Rik feels unwell today. He is very awake, and in fact, complains of being awake all night. He says he's been dealing with insomnia the last 3 years, but last night was the worst. He complains of pain in his mouth and throat, but is able to drink and eat more today than he was in the last two days before admission. Overnight he has had urinary retention. He's had small amounts of urine with command void and urine volumes of 500-800 cc upon post void bladder scan or straight cath. He complains of no BM for 3-4 days. Exam Narrative: Exam Narrative: General: Awake, alert, oriented x3. No acute distress. No jaundice. No pallor. Speech is slurred likely secondary to partial resection of the tongue. Oropharynx: Surgical resection of part of the tongue noted, erythema on roof of mouth, no white patches on the roof of mouth this morning, large white plaques on underside of the tongue, consistent with candidiasis. Mucous membranes moist. Cardiovascular: Regular rate and rhythm. No murmurs, gallops, or rubs. Chest: No increased work of breathing. No tachypnea. Rhonchi persist, but are much improved. No prolonged expiratory phase or tightness today. Abdomen: Obese. Bowel sounds present. Soft, nondistended, nontender. No hepatosplenomegaly or masses. Extremities: No edema, no cyanosis or clubbing. Right forearm Mepilex bandage is clean, dry, and intact. Const: Vital Signs, click to edit/add: Vital Signs - 24 hr 10/14/22 10:43 10/14/22 10:33 10/14/22 10:45 Temperature Pulse Rate 93 93 Pulse Rate [Pulse Oximeter] Respiratory Rate Blood Pressure Blood Pressure [Ri ght Arm] Pulse Oximetry 89 86 L 90 Oxygen Delivery Me thod Nasal Cannula Nasal Cannula Oxygen Flow Rate 3 3 10/14/22 10:46 10/14/22 11:00 10/14/22 11:02 Temperature Pulse Rate 95 89 92 Pulse Rate [Pulse Oximeter] Respiratory Rate Blood Pressure 90/47 L 81/51 L Blood Pressure [Ri t Arm] Pulse Oximetry 90 92 93 Oxygen Delivery Me thod Nasal Cannula Nasal Cannula Nasal Cannula Oxygen Flow Rate 3 3 3 10/14/22 11:15 10/14/22 11:16 10/14/22 11:17 Temperature Pulse Rate 94 96 99 Pulse Rate [Pulse Oximeter] Respiratory Rate Blood Pressure 94/65 [facility] Pulse Oximetry 94 94 94 Oxygen Delivery Me thod Oxygen Flow Rate 10/14/22 11:30 10/14/22 11:32 10/14/22 11:45 Temperature Pulse Rate 92 90 78 Pulse Rate [Pulse Oximeter] Respiratory Rate Blood Pressure 91/45 L Blood Pressure [facility]] Pulse Oximetry 93 93 92 Oxygen Delivery Me thod Oxygen Flow Rate 10/14/22 11:46 10/14/22 11:58 10/14/22 12:00 Temperature Pulse Rate 95 98 93 Pulse Rate [Pulse Oximeter] Respiratory Rate Blood Pressure 89/61 L 87/51 L Blood Pressure [facility]] Pulse Oximetry 93 91 91 Oxygen Delivery Me thod Oxygen Flow Rate 10/14/22 12:01 10/14/22 12:44 10/14/22 13:07 Temperature 100.4 F H Pulse Rate 90 92 Pulse Rate [Pulse Oximeter] Respiratory Rate 26 H Blood Pressure 102/64 Blood Pressure [Ri t Arm] 108/60 Pulse Oximetry 91 92 92 Oxygen Delivery Me thod Nasal Cannula Oxygen Flow Rate 3 10/14/22 14:25 10/14/22 14:25 10/14/22 14:35 Temperature Pulse Rate 79 Pulse Rate [Pulse Oximeter] Respiratory Rate 26 H Blood Pressure Blood Pressure [facility]] Pulse Oximetry 92 92 Oxygen Delivery Me thod Nasal Cannula Oxygen Flow Rate 3 10/14/22 15:06 10/14/22 15:06 10/14/22 15:06 Temperature Pulse Rate 78 Pulse Rate [Pulse Oximeter] Respiratory Rate 22 Blood Pressure Blood Pressure [facility]] Pulse Oximetry 95 92 Oxygen Delivery Me thod Nasal Cannula Oxygen Flow Rate 3 10/14/22 15:26 10/14/22 15:44 10/14/22 20:30 Temperature 99.4 F 98.8 F Pulse Rate Pulse Rate [Pulse Oximeter] Respiratory Rate 22 22 22 Blood Pressure Blood Pressure [Ri ght Arm] 110/62 132/70 Pulse Oximetry 92 90 Oxygen Delivery Me thod Nasal Cannula Nasal Cannula Oxygen Flow Rate 2 2 10/14/22 20:00 10/14/22 23:00 10/14/22 23:00 Temperature Pulse Rate 100 Pulse Rate [Pulse Oximeter] Respiratory Rate 22 Blood Pressure Blood Pressure [Ri ght Arm] Pulse Oximetry 92 Oxygen Delivery Me thod Oxygen Flow Rate 10/14/22 23:00 10/14/22 23:00 10/15/22 03:00 Temperature 98.5 F 97.6 F Pulse Rate Pulse Rate [Pulse Oximeter] 85 80 Respiratory Rate 22 20 Blood Pressure Blood Pressure [Ri ght Arm] 133/63 131/67 Pulse Oximetry 92 93 94 Oxygen Delivery Me thod Room Air Room Air Room Air Oxygen Flow Rate 10/15/22 07:21 10/15/22 07:23 Temperature Pulse Rate 86 Pulse Rate [Pulse Oximeter] Respiratory Rate Blood Pressure Blood Pressure [facility]] Pulse Oximetry 92 Oxygen Delivery Me thod Oxygen Flow Rate Labs Labs: Laboratory Results - last 24 hr 10/14/22 10/14/22 10/14/22 10:10 10:10 10:10 WBC 11.64 H RBC 4.39 Hgb 13.3 L Hct 40.6 MCV 93 MCH 30 MCHC 33 RDW Coeff of Ivan 12.4 Plt Count 268 Neut % (Auto) 80.0 H Lymph % (Auto) 7.6 L White % (Auto) 11.9 H Eos % (Auto) 0.0 Baso % (Auto) 0.1 Neut # (Auto) 9.30 H Lymph # (Auto) 0.90 White # (Auto) 1.40 H Eos # (Auto) 0.00 Baso # (Auto) 0.00 Abs Immat Gran (auto) 0.00 Imm/Tot Granulo (auto) 0.4 D-Dimer Quant (PE/DVT) 0.72 H VBG pH VBG pCO2 VBG pO2 VBG HCO3 Sodium 130 L Potassium 4.8 Chloride 92 L Carbon Dioxide 30 BUN 21 Creatinine 0.7 Estimated Creat Clear 117.32 Estimated GFR 106 Glucose 319 H Lactate Calcium 9.5 Magnesium Total Bilirubin 0.8 AST 20 ALT 25 Alkaline Phosphatase 78 C-Reactive Protein 8.7 H NT-Pro-B Natriuret Pep Total Protein 7.0 Albumin 4.0 Procalcitonin Urine Color Urine Appearance Urine pH Ur Specific [place] Urine Protein Urine Glucose (UA) Urine Ketones Urine Blood Urine Nitrite Urine Bilirubin Urine Urobilinogen Ur Leukocyte Esterase Urine RBC Urine WBC Ur Squamous Epith Cells Urine Bacteria Ethyl Alcohol SARS-CoV-2 (PCR) Influenza Type A (PCR) Influenza Type B (PCR) RSV (PCR) POC Troponin I 10/14/22 10/14/22 10/14/22 10:10 10:10 10:10 WBC RBC Hgb Hct MCV MCH MCHC RDW Coeff of Ivan Plt Count Neut % (Auto) Lymph % (Auto) White % (Auto) Eos % (Auto) Baso % (Auto) Neut # (Auto) Lymph # (Auto) White # (Auto) Eos # (Auto) Baso # (Auto) Abs Immat Gran (auto) Imm/Tot Granulo (auto) D-Dimer Quant (PE/DVT) VBG pH 7.427 VBG pCO2 49 VBG pO2 38.3 VBG HCO3 32 H Sodium Potassium Chloride Carbon Dioxide BUN Creatinine Estimated Creat Clear Estimated GFR Glucose Lactate 1.9 Calcium Magnesium 1.5 Total Bilirubin AST ALT Alkaline Phosphatase C-Reactive Protein NT-Pro-B Natriuret Pep 167 H Total Protein Albumin Procalcitonin 1.58 H Urine Color Urine Appearance Urine pH Ur Specific [place] Urine Protein Urine Glucose (UA) Urine Ketones Urine Blood Urine Nitrite Urine Bilirubin Urine Urobilinogen Ur Leukocyte Esterase Urine RBC Urine WBC Ur Squamous Epith Cells Urine Bacteria Ethyl Alcohol < 0.01 L SARS-CoV-2 (PCR) Negative SARS-CoV-2 Influenza Type A (PCR) Negative PCR FLU A Influenza Type B (PCR) Negative PCR FLU B RSV (PCR) Negative PCR RSV POC Troponin I 10/14/22 10/14/22 10/15/22 10:43 15:23 06:09 WBC 7.53 RBC 4.14 L Hgb 12.7 L Hct 38.5 MCV 93 MCH 31 MCHC 33 RDW Coeff of Ivan 12.5 Plt Count 244 Neut % (Auto) 74.2 H Lymph % (Auto) 12.0 L White % (Auto) 12.1 H Eos % (Auto) 0.7 Baso % (Auto) 0.3 Neut # (Auto) 5.60 Lymph # (Auto) 0.90 White # (Auto) 0.90 Eos # (Auto) 0.05 Baso # (Auto) 0.02 Abs Immat Gran (auto) 0.05 Imm/Tot Granulo (auto) 0.7 D-Dimer Quant (PE/DVT) VBG pH VBG pCO2 VBG pO2 VBG HCO3 Sodium Potassium Chloride Carbon Dioxide BUN Creatinine Estimated Creat Clear Estimated GFR Glucose Lactate Calcium Magnesium Total Bilirubin AST ALT Alkaline Phosphatase C-Reactive Protein NT-Pro-B Natriuret Pep Total Protein Albumin Procalcitonin Urine Color Yellow Urine Appearance Clear Urine pH 5.5 Ur Specific [place] 1.015 Urine Protein Negative Urine Glucose (UA) 3+ A Urine Ketones Negative Urine Blood Negative Urine Nitrite Negative Urine Bilirubin Negative Urine Urobilinogen 0.2 Ur Leukocyte Esterase Negative Urine RBC 0-2 Urine WBC 0-2 Ur Squamous Epith Cells Few Urine Bacteria None Ethyl Alcohol SARS-CoV-2 (PCR) Influenza Type A (PCR) Influenza Type B (PCR) RSV (PCR) POC Troponin I 0.01 10/15/22 06:09 WBC RBC Hgb Hct MCV MCH MCHC RDW Coeff of Ivan Plt Count Neut % (Auto) Lymph % (Auto) White % (Auto) Eos % (Auto) Baso % (Auto) Neut # (Auto) Lymph # (Auto) White # (Auto) Eos # (Auto) Baso # (Auto) Abs Immat Gran (auto) Imm/Tot Granulo (auto) D-Dimer Quant (PE/DVT) VBG pH VBG pCO2 VBG pO2 VBG HCO3 Sodium 135 Potassium 3.9 Chloride 98 Carbon Dioxide 29 BUN 13 Creatinine 0.4 L Estimated Creat Clear 205.31 Estimated GFR 126 Glucose 150 H Lactate Calcium 9.2 Magnesium Total Bilirubin 0.7 AST 18 ALT 23 Alkaline Phosphatase 75 C-Reactive Protein 16.7 H NT-Pro-B Natriuret Pep Total Protein 6.9 Albumin 3.9 Procalcitonin 1.27 H Urine Color Urine Appearance Urine pH Ur Specific [place] Urine Protein Urine Glucose (UA) Urine Ketones Urine Blood Urine Nitrite Urine Bilirubin Urine Urobilinogen Ur Leukocyte Esterase Urine RBC Urine WBC Ur Squamous Epith Cells Urine Bacteria Ethyl Alcohol SARS-CoV-2 (PCR) Influenza Type A (PCR) Influenza Type B (PCR) RSV (PCR) POC Troponin I
[2022-10-15 10:21] LABS: Hemoglobin* 13.1 gm/dL (13.5-17.5)
[2022-10-15] MEDS: polyethylene glycoL 3350 17 GM PACK PO (12:07)
[2022-10-15] MEDS: TAMSULOSIN HCL 0.4 MG CAPSULE PO (12:08)
--- NOTE | 2022-10-15 14:08 | P.IMCN_ITS ---
Date of Consult Consult date: 10/15/22 Requesting Physician: Hospitalist Primary Care Provider: Shanae Swanson PA-C Consult Narrative Reason for consult: infected graft harvest site Narrative: Rafa Denis is a 57 year old male being seen at request of hospitalist for wound to right forearm. Tendon exposed, patient states this has been exposed since the surgery on 08/28/22 at [facility]. Wound is a result of skin graft harvest site. ?Developed wound complications with the graft at the harvest site is status post a course of Augmentin, f/u with oncology on 09/26/22 and cellulitis still present at site and patient received an extension of the augmentin. At that time patient noted over the last 2 days the erythema surrounding his graft site has increased slightly with a slight increase in discomfort.?Currently being followed by oncology. Admitted inpatient yesterday after presenting to ER s/p radiation treatment for the day. Upon presentation to the ER patient was noted to have low as p.o. sats 88% and hypotensive. It was determined that he was septic related to pneumonia. He was admitted in patient started on IV antibiotics. Patient was initially scheduled to have chemotherapy yesterday afternoon after his radiation treatment however due to patient requiring inpatient hospitalization and IV antibiotics chemotherapy was placed on hold. Today patient is afebrile and appears to be responding well to the IV antibiotics. He reports moderate amount of drainage from the wound to his right forearm. Describes the dressings as Adaptic covered with an ABD pad he changes it 1 to 2 times a day. mild malodor to wound. Large amounts of slough with hypergranulation and epibole to the wound edges. Patient feels wound has slowly gotten worse. Review of records- unable to find any wound cultures from right forearm. 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 Sixteen positive nodes with ETHEL and close margins in addition to multifocal tumor with PNI/LVI.? ? Review of Systems Status of ROS: Reports: 6 or more systems reviewed and unremarkable except as noted in History and below [facility] Medical History (Updated 11/12/22 @ 13:54 by Ирина Timmons CNP) Alcoholism Asthma Blind right eye CAD (coronary artery disease) Cancer of oral cavity Cellulitis of arm Charcot's joint of left foot Chest pain Chronic pain syndrome Class 1 obesity Congenital medullary sponge kidney COPD (chronic obstructive pulmonary disease) Daily consumption of alcohol Diabetes mellitus, type II HTN (hypertension) Hyperlipidemia Insomnia Pneumonia Tobacco abuse Surgical History H/O lumbosacral spine surgery H/O skin graft H/O umbilical hernia repair History of carpal tunnel release S/P cervical spinal fusion S/P eye surgery S/P partial glossectomy Status post tracheostomy Family History (Updated 10/14/22 @ 17:30 by Debra Russ MD) Mother Cancer High blood pressure Father Diabetes Heart disease High blood pressure Stroke Social History (Updated 10/14/22 @ 17:32 by Debra Russ MD) Narrative: Lives with . Has 6 sisters, one a few years ago of covid. They are very close. Quit EtOH and tobacco use in aug 2022. Daily marajuana use. Advanced directives state that he wants to be DNR/DNI. His and sister think chemo and radiation have been too much for him and are not sure if he should continue. Highest level of school completed/degree received: some college, no degree Smoking Status: Current every day smoker What tobacco products do you use: cigarettes Smoking packs per day: 0.5 Smoking cigarettes per day: 10.0 Do you use any of these nicotine containing products: None Second hand tobacco smoke exposure: No How often do you have a drink containing alcohol: 4 or more times a week How many standard drinks containing alcohol do you have on a typical day: 7 to 9 How often do you have six or more drinks on one occasion: Daily or almost daily AUDIT-C Alcohol total score: 11 Non-prescribed substance use: marijuana (any form) service: No Meds Home Medications and Allergies Home Medications Medication Instructions Recorded Confirmed Type amlodipine 10 mg tablet 10 mg PO DAILY 09/26/22 11/11/22 History famotidine 40 mg/5 mL (8 mg/mL) 5 ml PO DAILY 09/26/22 11/11/22 History oral suspension insulin NPH-regular 70-30 U-100 25 unit subcut BIDWM 09/26/22 11/11/22 History insulin 100 unit/mL subcutaneous pen (Novolin 70-30 FlexPen U-100 Insulin) isosorbide mononitrate 60 mg 60 mg PO DAILY 09/26/22 11/11/22 History tablet,extended release 24 hr lancets (OneTouch UltraSoft #100 ea 09/26/22 11/11/22 History Lancets) lorazepam 1 mg tablet 1 mg PO DAILY PRN 09/26/22 11/11/22 History metformin 500 mg tablet,extended 2,000 mg PO DAILY 09/26/22 11/11/22 History release 24 hr metoprolol succinate 100 mg 100 mg PO DAILY 09/26/22 11/11/22 History tablet,extended release 24 hr oxycodone 5 mg tablet 5 mg PO Q6H PRN 09/26/22 11/11/22 History atorvastatin 40 mg tablet 40 mg PO HS 10/14/22 11/11/22 History lisinopril 40 mg tablet 40 mg PO DAILY 10/14/22 11/11/22 History morphine 15 mg tablet,extended 30 mg PO BID 11/11/22 11/11/22 History release Allergies Allergy/AdvReac Type Severity Reaction Status Date / Time No Known Drug Allergies Allergy Verified 11/11/22 09:45 Exam Narrative: Exam Narrative: General: alert, NAD Pulmonary: unlabored breathing, symmetrical chest rise. Right upper extremity: lock assembler strength strong. Radial pulse strong. Cap refill WNL. Psych: Normal affect, appropriate eye contact, interactive Skin: right forearm wound: 11X5X0.3, 75% biofilm & slough 25% epithelial bridging and dry epithelial crusting. epibole edges. no surrounding erythema or induration, skin temp WNL. Const: Vital Signs, click to edit/add: Vital Signs - 24 hr 10/14/22 14:25 10/14/22 14:25 10/14/22 14:35 Temperature Pulse Rate 79 Pulse Rate [Pulse Oximeter] Respiratory Rate 26 H Blood Pressure [Ri ght Arm] Pulse Oximetry 92 92 Oxygen Delivery Me thod Nasal Cannula Oxygen Flow Rate 3 10/14/22 15:06 10/14/22 15:06 10/14/22 15:06 Temperature Pulse Rate 78 Pulse Rate [Pulse Oximeter] Respiratory Rate 22 Blood Pressure [Ri ght Arm] Pulse Oximetry 95 92 Oxygen Delivery Me thod Nasal Cannula Oxygen Flow Rate 3 10/14/22 15:26 10/14/22 15:44 10/14/22 20:30 Temperature 99.4 F 98.8 F Pulse Rate Pulse Rate [Pulse Oximeter] Respiratory Rate 22 22 22 Blood Pressure [Ri ght Arm] 110/62 132/70 Pulse Oximetry 92 90 Oxygen Delivery Me thod Nasal Cannula Nasal Cannula Oxygen Flow Rate 2 2 10/14/22 20:00 10/14/22 23:00 10/14/22 23:00 Temperature Pulse Rate 100 Pulse Rate [Pulse Oximeter] Respiratory Rate 22 Blood Pressure [Ri ght Arm] Pulse Oximetry 92 Oxygen Delivery Me thod Oxygen Flow Rate 10/14/22 23:00 10/14/22 23:00 10/15/22 03:00 Temperature 98.5 F 97.6 F Pulse Rate Pulse Rate [Pulse Oximeter] 85 80 Respiratory Rate 22 20 Blood Pressure [Ri ght Arm] 133/63 131/67 Pulse Oximetry 92 93 94 Oxygen Delivery Me thod Room Air Room Air Room Air Oxygen Flow Rate 10/15/22 07:21 10/15/22 07:23 10/15/22 07:30 Temperature Pulse Rate 86 Pulse Rate [Pulse Oximeter] 80 Respiratory Rate 20 Blood Pressure [Ri ght Arm] Pulse Oximetry 92 Oxygen Delivery Me thod Oxygen Flow Rate 10/15/22 07:30 10/15/22 07:30 Temperature 97.8 F Pulse Rate Pulse Rate [Pulse Oximeter] 80 Respiratory Rate 20 Blood Pressure [Ri ght Arm] 125/88 Pulse Oximetry 93 92 Oxygen Delivery Me thod Room Air Room Air Oxygen Flow Rate Documenting provider has reviewed patient's vital signs: yes Common normals: no apparent distress and alert General appearance: cooperative and comfortable Nutritional appearance: overweight Neck & C-Spine: Common normals: no meningeal signs Lymph: Other: diffuse generalized edema to RUE Chest: Common normals: inspection of chest normal Resp: Common normals: normal respiratory effort Cardio: Peripheral pulses: radial pulses present Extremity: Common normals: normal capillary refill Neuro: Common normals: moves all extremities and no focal motor deficits Sensorium/orientation: alert Meningeal signs: no meningeal signs Psych: Common normals: mental status grossly normal and thought process normal Attitude: calm and engaged Activity/motor behavior: appropriate eye co ntact Thought process: normal thought process Skin: Skin images (male): 1. graft site Labs Labs: Short CBC 10/15/22 10/15/22 Range/Units 06:09 10:14 WBC 7.53 (4.50-11.00) K/uL Hgb 12.7 L 13.1 L (13.5-17.5) gm/dL Hct 38.5 (37.0-53.0) % Plt Count 244 (140-440) K/uL BMP 10/15/22 06:09 Sodium 135 Potassium 3.9 Chloride 98 Carbon Dioxide 29 BUN 13 Creatinine 0.4 L Glucose 150 H Calcium 9.2 Liver Function 10/15/22 Range/Units 06:09 Total Bilirubin 0.7 (0.1-1.5) mg/dL AST 18 (12-35) U/L ALT 23 (4-50) U/L Alkaline Phosphatase 75 (40-150) U/L Albumin 3.9 (3.3-5.0) g/dL Urine 10/14/22 Range/Units 15:23 Urine Color Yellow (Yellow) Urine Appearance Clear (Clear) Urine pH 5.5 (5.0-8.5) Ur Specific [place] 1.015 (1.000-1.030) Urine Protein Negative (Negative) Urine Glucose (UA) 3+ A (Negative) Assessment and Plan Assessment and plan (1) Cellulitis of arm, right: Status: Acute (2) Non-healing wound of right upper extremity: Status: Acute Plan Non-healing wound to right forearm. Collected wound culture. Completed excision debridement to healthy bleeding tissue. Vashe 10min gauze soak urgotol cut to fit wound with roughly 5mm overlap hydrofera blue classic cut to fit size of wound, lightly moisten with normal saline. This will help improve hypergranulation and epibole to wound edges cover with 4X8 bordered foam dressing (cover the area that is open and draining) Change EOD & PRN superior wound paint with betadine- once daily apply size f tubi-lock assembler for light compression to above elbow to improve edema. wear this compression daily Pending wound culture results. Patient is currently being managed by hospitalist with antibiotics with broad-spectrum coverage that would cover for common organisms encountered nonhealing wounds. Will refer patient back to [facility] who performed his previous procedure for ongoing wound care services/needs. Procedures Additional Procedures Additional Procedure Details: After procedure explained. Verbal consent given by patient for procedure. 10 minute Vashe soak to the wound prior to procedure. excisional debridement with #4 curette. Removal of slough, biofilm, subcu hypergranulation, epidermis, dermis debridement back to healthy bleeding tissue. wound culture completed. Patient tolerated procedure well. Wound cleansed dressing applied.
--- NOTE | 2022-10-15 15:17 | PC.NURSE ---
VSS AND AFEBRILE. MOUTH AND NECK PAIN IMPROVED WITH MS CONTIN AND OXYCODONE. TOLERATING SOFT REGULAR DIET WITH NO C/O N/V. PATIENT VOIDING IN URINAL FREQUENTLY AMOUNTS 100ML-350ML. BLADDER SCAN AT 1230 WAS 616ML. PATIENT THEN VOIDED TWICE FOR A TOTAL OF 400. FOLLOW UP BLADDER SCAN WAS 460ML. STRAIGHT CATH PERFORMED WITH 1000ML OUTPUT. DR. MICHAEL UPDATED. DRESSING CHANGE TO RIGHT ARM COMPLETED BY AVILA PAULINO FROM WOUND CARE CLINIC. WOUND CULTURE SENT TO LAB. PER LORA'S INSTRUCTIONS, DRESSING CHANGE TO BE COMPLETED EVERY OTHER DAY AND IF PATIENT STILL ADMITTED ON FRIDAY, SHE WILL COMPLETE DRESSING CHANGE THEN. UP WITH SBA TO RECLINER. ENCOURAGED CDB AND AEROBIKA USE.
[2022-10-15] MEDS: SENNOSIDES/DOCUSATE TABLET 2 TAB PO (21:43)
[2022-10-15] MEDS: ENOXAPARIN 40 MG/0.4 ML INJ SUBCUT (21:43)
[2022-10-15] MEDS: ATORVASTATIN CALCIUM 40 MG TABLET PO (21:43)
--- NOTE | 2022-10-15 21:51 | PC.NURSE ---
Shift Note [id number]: Pt cooperative. Withdrawn, answers questions appropriately. Consistently rates pain to jaw 8/10 despite scheduled and PRN pain medication. Declined ice chips. VSS, pt has been slighly hypertensive. SpO2= 97% on RA. Afebrile. Dressing to right FA C,D,&I. Right upper extremity warm to touch with great radial pulse. Cap refill less than 3 seconds. Pt encouraged to use Aerobika, he continues to exhibit moist intermittent cough. LS with inspiratory rhonci. Moves well with SBA/assist x1. BG= 223 and 212, sliding scale insulin given. Tele= NSR.
[2022-10-15] MEDS: MELATONIN 3 MG TABLET PO (23:26)
[2022-10-16] MEDS: PIPERACILLIN/TAZOBACTAM 3.375 GM in 0.9 % SODIUM CHLORIDE Mini-bag 100 ML IVPB ×2 (00:35→06:28)
[2022-10-16 03:00] VITALS: BP 134/86; PULSE 73; RESP 22; TEMP 36.3; O2SAT 93
[2022-10-16] MEDS: IPRAT-ALBUT 0.5-2.5 MG/3 ML NEB 1 NEB IH (06:28)
[2022-10-16] MEDS: OXYCODONE 5 MG TABLET PO (06:35)
--- NOTE | 2022-10-16 06:58 | PC.NURSE ---
Shift note: Pt rates pain 07/10, RN treated per eMAR with relief and pt was able to rest intermittently throughout the night.
[2022-10-16 07:20] LABS: Basophils Absolute Auto 0.01 K/uL (0.00-0.30); Basophils Percent Auto 0.1 % (0.0-3.0); Eosinophils Absolute Auto 0.06 K/uL (0.00-0.50); Eosinophils Percent Auto 0.8 % (0.0-7.0); Hematocrit 39.7 % (37.0-53.0); Hemoglobin* 13.3 gm/dL (13.5-17.5); Immature Granulocytes Abs Auto 0.01 K/uL (0.00-0.30); Immature Granulocytes Pct Auto 0.1 %; Lymphocytes Percent Auto 10.4 % (20-44); Mean Corpuscular HGB Conc 34 gm/dL (32-36); Mean Corpuscular Hemoglobin 31 pg (26-34); Mean Corpuscular Volume 92 fL (80-100); Monocytes Percent Auto 12.3 % (0.0-11.0); Neutrophils Percent Auto 76.3 % (42.0-72.0); Platelet Count* 250 K/uL (140-440); RDW Coefficient of Variation % 12.6 % (11.5-15.5); White Blood Count* 7.24 K/uL (4.50-11.00)
[2022-10-16 07:24] LABS: Slide Review Reflex No
[2022-10-16 07:37] LABS: Chloride* 97 mmol/L (96-114); Potassium* 4.7 mmol/L (3.6-5.1); Sodium* 137 mmol/L (135-149)
[2022-10-16 07:39] LABS: Creatinine* 0.4 mg/dL (0.5-1.5); Est. Creatinine Clearance* 205.31; Estimated Glomerular Filt Rate 126 ml/min
[2022-10-16 07:40] LABS: Blood Urea Nitrogen* 10 mg/dL (7-30); Carbon Dioxide* 32 mmol/L (20-32)
[2022-10-16 07:41] LABS: Calcium* 9.9 mg/dL (8.4-10.6); Glucose* 212 mg/dL (60-115)
[2022-10-16 07:59] LABS: C Reactive Protein* 12.9 mg/dL (0.5-1.0)
[2022-10-16 08:30] VITALS: BP 143/70; PULSE 82; RESP 16; TEMP 36.5; O2SAT 91
[2022-10-16 08:56] VITALS: O2SAT 91
[2022-10-16] MEDS: SENNOSIDES/DOCUSATE TABLET 2 TAB PO (09:56)
[2022-10-16] MEDS: FLUCONAZOLE 100 MG TABLET PO (09:57)
[2022-10-16] MEDS: TAMSULOSIN HCL 0.4 MG CAPSULE PO (09:57)
--- NOTE | 2022-10-16 10:11 | P.DS_ITS ---
DS: Providers Provider Time Seen by Provider: 08:47 Date Seen: 10/16/22 Date of admission: 10/14/22 13:20 Primary care physician: Shanae Swanson PA-C Admitting Clinician: Debra Russ MD Consults: 10/14/22 17:15 Consult to Wound Care [CONS] Routine Comment: Consulting Provider: Ирина Timmons Attending Physician on discharge: Debra Russ MD Date of Discharge: 10/16/22 DS: Diagnosis Discharge Diagnosis (1) Sepsis: Status: Resolved (2) Pneumonia: Status: Acute Problem details: Acute right lower lobe infiltrate seen on chest x-ray (3) Cellulitis of arm: Status: Acute Problem details: Wound culture from 10/15/2022 is pending. (4) Urinary retention: Status: Resolved (5) Oropharyngeal candidiasis: Status: Acute Problem details: Treating with Diflucan (6) Constipation: Status: Acute Problem details: Secondary to opioids (7) Insomnia: Status: Acute Problem details: May use melatonin p.r.n. (8) CAD (coronary artery disease): Status: Chronic Problem details: nonocclusive (9) HTN (hypertension): Status: Chronic (10) Diabetes mellitus, type II: Status: Chronic (11) Daily consumption of alcohol: Status: Chronic Problem details: 7-8 drinks/day before surgery in Aug, has had 4-5 beers since then. Plans to quit altogether now. (12) Cancer of oral cavity: Status: Chronic Problem details: [id number] (13) Patient on combined chemotherapy and radiation: Status: Chronic DS: Summary Hospital Course Hospital Course: This is a 57-year-old male who had surgery in August and recently started ch emotherapy and radiation for squamous cell carcinoma head and neck. He had confusion and sleepiness that started in the last day or so and was getting worse for which he was sent to the emergency department after he completed his radiation treatment. He was found to have a right lower lobe pneumonia and his right forearm graft looked possibly infected as well. He also had severe oropharyngeal candidiasis. He was very sleepy and unable to give history. His and sister, Génesis, were with him and able to give some history on admission. He was treated with IV levofloxacin, Zosyn, and vancomycin and Diflucan and admitted to the critical care unit. He was hypotensive upon presentation, this improved with fluids. His lactate was never elevated, but his CRP and prolactin were both elevated. He met the criteria for severe sepsis. By the next hospital day his sepsis had resolved and he was awake and oriented x3. Antibiotics were de-escalated to Zosyn only. He was having urinary retention for which he had command void with straight cath. Urinary tension resolved over the 2nd hospital night. 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 He is overall much improved and appears back to his baseline. We had an extensive conversation this morning about whether not to continue with chemotherapy and radiation, sepsis, oropharyngeal candidiasis, and wound care of his right forearm. I have asked him to follow-up with his oncologist to determine when and if he should restart chemo and radiation. I have also asked him to avoid alcohol and tobacco use and stop using any home made S wishes for his mouth, such as the baking soda swishes his was making for him. I noted that he is currently immunosuppressed and undergoing radiation therapy to the area which is likely making his mucous membranes raw and the basic nature of baking soda swishes may be irritating or even burning his mucosa. He demonstrated understanding and did tell me that he had already decided to quit drinking altogether and has not had anything for at least a week. We also discussed constipation. He still has not had a bowel movement, but just started on senna and MiraLax yesterday. Will continue to use these at home and contact his primary care provider if needed. He is discharged home in improved and stable condition today. e will proceed with infection workup however. Time spent discussing smoking cessation with patient: 3 to 10 minutes Time Spent with Patient Time attestation: Total time spent providing and/or coordinating discharge services: Time spent: Greater than 30 minutes Exam Narrative: Exam Narrative: General: Awake, alert, oriented x3. No acute distress. No jaundice. No pallor. Speech is slurred likely secondary to partial resection of the tongue, this seems better today. Oropharynx: Surgical resection of part of the tongue noted, erythema on roof of mouth improving, white patches and plaques improving. Some milky phlegm is present, patient was drinking Ensure when I walked in. Mucous membranes moist. Cardiovascular: Regular rate and rhythm. No murmurs, gallops, or rubs. Chest: No increased work of breathing. No tachypnea. Rhonchi have cleared in most of the lungs, but are still present faintly in the right lower lung field. No prolonged expiratory phase or tightness, no wheezes. Abdomen: Obese. Bowel sounds present. Soft, nondistended, nontender. No hepatosplenomegaly or masses. Extremities: No edema, no cyanosis or clubbing. Right forearm Mepilex bandage is clean, dry, and intact. Const: Vital Signs, click to edit/add: Vital Signs - 24 hr 10/15/22 12:00 10/15/22 15:00 10/15/22 15:00 Temperature 98 F Pulse Rate Pulse Rate [Pulse Oximeter] 79 83 Respiratory Rate 20 20 Blood Pressure [Ri ght Arm] 131/74 Pulse Oximetry 95 93 Oxygen Delivery Me thod Room Air 10/15/22 15:00 10/15/22 15:00 10/15/22 19:00 Temperature 98.8 F 98.7 F Pulse Rate Pulse Rate [Pulse Oximeter] 83 85 Respiratory Rate 20 20 20 Blood Pressure [Ri ght Arm] 140/1 H 149/79 H Pulse Oximetry 93 93 93 Oxygen Delivery Me thod Room Air Room Air Room Air 10/15/22 15:00 10/15/22 23:00 10/15/22 23:00 Temperature Pulse Rate 97 Pulse Rate [Pulse Oximeter] Respiratory Rate 20 Blood Pressure [Ri ght Arm] Pulse Oximetry 95 94 Oxygen Delivery Me thod Room Air 10/15/22 23:00 10/15/22 23:00 10/16/22 03:00 Temperature 98 F 97.4 F L Pulse Rate 73 Pulse Rate [Pulse Oximeter] 84 73 Respiratory Rate 20 22 Blood Pressure [Ri ght Arm] 137/79 134/86 Pulse Oximetry 94 93 Oxygen Delivery Me thod Room Air Room Air 10/16/22 08:30 10/16/22 08:56 10/16/22 08:56 Temperature 97.7 F Pulse Rate Pulse Rate [Pulse Oximeter] 82 Respiratory Rate 16 Blood Pressure [Ri ght Arm] 143/70 H Pulse Oximetry 91 91 91 Oxygen Delivery Me thod Room Air Room Air DS: Data Data Completed and Pending Completed studies during hospitalization: Ordering Physician: Suchomel-Brown,Doretha R M.D. Date of Service: 10/14/22 Procedure(s): XR chest 1V portable Accession Number(s): [id number] cc: Shanae Swanson PA-C; Doretha Salcedo M.D.~ For Patients: As a result of the Cures Act, medical imaging exams and procedure reports are released immediately into your electronic medical record. You may view this report before your referring provider. If you have questions, please contact your health care provider. Indication: Altered mental status. Technique: Chest 1 view. Comparison: 09/09/2022. Findings/Impression: Cardiovascular and mediastinum: Heart size and vasculature are normal in caliber and appearance. Lungs and pleural space: Acute right lower lobe infiltrate consistent with pneumonia. Remainder of the lungs and pleural spaces are clear. Bones and soft tissues: No acute findings. Dictated by Wayne Reynolds MD @ 10/14/2022 11:48:05 AM (Electronically Signed) 10/14/2022 10:31 a.m. EKG: Normal sinus rhythm, heart rate 95 beats per minute. Normal EKG. Pending studies at discharge: Wound culture of right forearm is pending. Labs on day of discharge: Labs from last 24 hours 10/16/22 10/16/22 10/16/22 06:16 06:16 06:16 WBC 7.24 RBC 4.30 Hgb 13.3 L Hct 39.7 MCV 92 MCH 31 MCHC 34 RDW Coeff of Ivan 12.6 Plt Count 250 Neut % (Auto) 76.3 H Lymph % (Auto) 10.4 L [place] % (Auto) 12.3 H Eos % (Auto) 0.8 Baso % (Auto) 0.1 Neut # (Auto) 5.50 Lymph # (Auto) 0.80 L [place] # (Auto) 0.90 Eos # (Auto) 0.06 Baso # (Auto) 0.01 Abs Immat Gran (auto) 0.01 Imm/Tot Granulo (auto) 0.1 Sodium 137 Potassium 4.7 Chloride 97 Carbon Dioxide 32 BUN 10 Creatinine 0.4 L Estimated Creat Clear 205.31 Estimated GFR 126 Glucose 212 H Calcium 9.9 C-Reactive Protein 12.9 H Prolactin Baseline Pending 10/15/22 10:14 WBC RBC Hgb 13.1 L Hct MCV MCH MCHC RDW Coeff of Ivan Plt Count Neut % (Auto) Lymph % (Auto) [place] % (Auto) Eos % (Auto) Baso % (Auto) Neut # (Auto) Lymph # (Auto) [place] # (Auto) Eos # (Auto) Baso # (Auto) Abs Immat Gran (auto) Imm/Tot Granulo (auto) Sodium Potassium Chloride Carbon Dioxide BUN Creatinine Estimated Creat Clear Estimated GFR Glucose Calcium C-Reactive Protein Prolactin Baseline Preliminary micro results at discharge 10/14/22 10:43 Blood Culture - Preliminary Blood NO GROWTH AFTER 24 HOURS 10/14/22 10:10 Blood Culture - Preliminary Blood NO GROWTH AFTER 24 HOURS Discharge Plan Discharge Disposition: Home, Self-Care Date of Admission: 10/14/22 13:20 Attending Provider on Discharge: Debra Russ Consulting Providers: Ирина Timmons Primary Care Provider: Shanae Swanson Condition: Improved Anticipated Discharge Date/Time: 10/16/22 10:34 Discharge Medications: New fluconazole [Diflucan] 100 mg Tablet 100 mg PO DAILY Qty: 12 0RF polyethylene glycol 3350 17 gram Powder In Packet 17 g PO DAILY PRNQty: 1 0RF sennosides-docusate sodium [Stool Softener-Laxative] 8.6-50 mg Tablet 2 tab PO BID Qty: 120 0RF melatonin 3 mg Tablet 3 - 6 mg PO HS PRNQty: 0 0RF tamsulosin 0.4 mg Capsule 0.4 mg PO DAILY Qty: 30 0RF amoxicillin-pot clavulanate 875-125 mg tablet 1 tab PO BID Qty: 10 0RF Continued morphine 15 mg tablet extended release 15 mg PO BID Label Comments: TAKE 1 TABLET BY MOUTH EVERY 12 HOURS ON A SCHEDULED BASIS FOR CANCER- ASSOCIATED PAIN FOR 15 DAYS oxycodone 5 mg tablet 5 mg PO Q6H PRN lorazepam 1 mg tablet 1 mg PO DAILY PRN Novolin 70-30 FlexPen U-100 100 unit/mL (70-30) insulin pen 25 unit subcut BIDWM isosorbide mononitrate 60 mg tablet extended release 24 hr 60 mg PO DAILY famotidine 40 mg/5 mL (8 mg/mL) suspension 5 ml PO DAILY (DME) lancets [OneTouch UltraSoft Lancets] Misc See Rx Instructions .ROUTE .MEDSUPPLY Qty: 100 Rx Instructions: As directed metformin 500 mg tablet extended release 24 hr 2,000 mg PO DAILY metoprolol succinate 100 mg tablet extended release 24 hr 100 mg PO DAILY amlodipine 10 mg tablet 10 mg PO DAILY prochlorperazine maleate [Compazine] 10 mg tablet 10 mg PO TID PRN (Reason: nausea and vomiting) Qty: 30 1RF Rx Instructions: Take if needed for chemotherapy related nausea or vomiting. atorvastatin 40 mg tablet 40 mg PO HS Label Comments: TAKE 1 TABLET BY MOUTH ONCE DAILY lisinopril 40 mg tablet 40 mg PO DAILY Label Comments: TAKE 1 TABLET BY MOUTH ONCE DAILY Held escitalopram oxalate 10 mg tablet 10 mg PO DAILY Hold Instructions: Resume on 10/30/22. ondansetron 8 mg tablet,disintegrating 8 mg PO Q8H PRN (Reason: nausea and vomiting) Qty: 30 1RF Hold Instructions: Resume on 10/30/22. Rx Instructions: Take if compazine (prochlorperazine) is not effective for chemotherapy related nausea. May start taking 24 hours after chemotherapy. Discontinued nystatin 100,000 unit/mL suspension 5 ml PO QID Label Comments: TAKE 5 ML BY MOUTH 4 TIMES DAILY Discharge Orders: Discharge Order (Routine); Ordered 10/16/22 Ordered By: Debra Russ Patient Education: Constipation (DC), Oral Candidiasis (GEN), Bacterial Pneumonia (DC) Additional Instructions: Avoid alcohol and tobacco use. Follow-up with [facility] wound [facility] as previously scheduled. Contact Oncology for next appointment. Avoid home remedies for thrush, especially baking soda swishes. Activity Level: Activity as Tolerated Discharge Diet: Diabetic Follow Up Appointments: Shanae Swanson PA-C [Primary Care Provider] - (as needed) Provider,Not a Local [Referring] - Forms: [employer] Info Instructions
[2022-10-16 11:54] VITALS: BP 138/74; PULSE 92; RESP 16; TEMP 36.6; O2SAT 91
--- NOTE | 2022-10-16 12:38 | PC.NURSE ---
Patient was discharged home with sister. All discharge instructions reviewed and understood by patient. PIV was removed and catheter intact. Was sating 91% on room air. No fever. BP within normal limits. Tele was discontinued but was in NSR prior. Dressing change on right forearm to be completed every other day. This was done yesterday. patient has supplies at home to change tomorrow. Has follow up with [facility] tomorrow AM and also radiation tomorrow AM. Has appointment with PCP tomorrow as well. Tolerating a soft diet. No nausea. Has chronic pain and getting scheduled meds for this. Has not had BM- refused supp. Gave senna. Voiding on own. Post void bladder scan this morning was 146cc and MD was notified and okay with this. All questions answered. New prescriptions sent to [facility] in [place]. Left via wheelchair escort.
--- NOTE | 2022-10-16 13:25 | PC.SOCIAL ---
Informational Note: Information provided from pt's brother, David Denis, that pt has a [employer], Rose Marie Kelly
[2022-10-18 15:17] LABS: Prolactin 7.9 ng/mL (2.1-17.7)
== END 2022-10-16 12:05 | disposition home or self-care (01) | DRG 871 ==
LOC: ED 10:14 → MEDSURG 12:23
PROVIDERS: Admitting Provider Family Medicine; Emergency Provider Family Medicine; PCP Internal Medicine; Visit Provider Family Medicine
DX: A41.9 Sepsis, unspecified organism (principal); J18.9 Pneumonia, unspecified organism; T86.822 Skin graft (allograft) (autograft) infection; L03.113 Cellulitis of right upper limb; B37.0 Candidal stomatitis; Q61.5 Medullary cystic kidney; Z16.23 Resistance to quinolones and fluoroquinolones; D84.821 Immunodeficiency due to drugs; T81.42XA Infection following a procedure, deep incisional surgical site, initial encounter; R65.20 Severe sepsis without septic shock; R33.9 Retention of urine, unspecified; R13.10 Dysphagia, unspecified; K59.03 Drug induced constipation; T40.2X5A Adverse effect of other opioids, initial encounter; G47.00 Insomnia, unspecified; I25.10 Atherosclerotic heart disease of native coronary artery without angina pectoris; I10 Essential (primary) hypertension; C06.9 Malignant neoplasm of mouth, unspecified; J44.9 Chronic obstructive pulmonary disease, unspecified; G89.4 Chronic pain syndrome; F17.210 Nicotine dependence, cigarettes, uncomplicated; J45.909 Unspecified asthma, uncomplicated; E66.9 Obesity, unspecified; Z93.0 Tracheostomy status; Z79.4 Long term (current) use of insulin; Z79.84 Long term (current) use of oral hypoglycemic drugs; Z68.31 Body mass index [BMI] 31.0-31.9, adult; A49.01 Methicillin susceptible Staphylococcus aureus infection, unspecified site; Z79.630 Long term (current) use of alkylating agent; K59.00 Constipation, unspecified; Z87.891 Personal history of nicotine dependence; E11.610 Type 2 diabetes mellitus with diabetic neuropathic arthropathy; F10.11 Alcohol abuse, in remission
CPT/HCPCS: 36415; 51702; 51798; 71045; 80048; 80053; 81001; 82077; 82803; 83605; 83735; 83880; 84145; 84146; 85018; 85025; 85379; 86140; 87040; 87070; 87186; 87502; 87634; 87635; 93005; 94640; 94761; 99284; 99285; A9270; J1650; J1956; J2543; J3010; J3370; J7030; J7120

== ENCOUNTER 2022-12-18 11:00 | Outpatient (RCR) | payer OTHER, SELFPAY ==
--- NOTE | 2022-10-03 13:27 | ONC.NURNOTE ---
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
--- NOTE | 2022-10-03 16:20 | ONC.NURNOTE ---
Palonestron denied by mick insurance underwriter sales called mick for a stat appeal as plan is for patient to start his chemotherapy on 10/08/22 [phone] case # [id number] info provided by phone and insurance underwriter sales was told that there will be a 72 hour turn around time
--- NOTE | 2022-10-07 08:25 | URNOTE ---
Request received for authorization for Fosaprepitant ([id number]), Platinol (J9060), and Palonosetron ([id number]). Prior authorization is not needed for Fosaprepitant or Platinol per [employer] Rep. [place] ref# [id number]. PA for Palonosetron was denied and appeal was sent by Naila TREVIZO. The appeal was approved Ref# [id number] Palonosetron ([id number]) is Approved 10/08/2022 to 10/08/2023.
[2022-10-07 15:52] LABS: Basophils Absolute Auto 0.02 K/uL (0.00-0.30); Basophils Percent Auto 0.3 % (0.0-3.0); Eosinophils Absolute Auto 0.11 K/uL (0.00-0.50); Eosinophils Percent Auto 1.7 % (0.0-7.0); Hematocrit 38.7 % (37.0-53.0); Hemoglobin* 12.9 gm/dL (13.5-17.5); Immature Granulocytes Abs Auto 0.01 K/uL (0.00-0.30); Immature Granulocytes Pct Auto 0.2 %; Lymphocytes Absolute Auto 1.65 K/uL (0.90-2.90); Lymphocytes Percent Auto 25.4 % (20-44); Mean Corpuscular HGB Conc 33 gm/dL (32-36); Mean Corpuscular Hemoglobin 31 pg (26-34); Mean Corpuscular Volume 93 fL (80-100); Neutrophils Absolute Auto 3.79 K/uL (1.7-7.0); Neutrophils Percent Auto 58.4 % (42.0-72.0); Platelet Count* 225 K/uL (140-440); RDW Coefficient of Variation % 12.2 % (11.5-15.5); Red Blood Count 4.16 m/uL (4.30-5.90); White Blood Count* 6.49 K/uL (4.50-11.00)
[2022-10-07 15:54] LABS: Slide Review Reflex No
[2022-10-07 16:11] LABS: Albumin* 4.1 g/dL (3.3-5.0); Chloride* 95 mmol/L (96-114)
[2022-10-07 16:12] LABS: Potassium* 4.2 mmol/L (3.6-5.1); Sodium* 137 mmol/L (135-149)
[2022-10-07 16:14] LABS: Alanine Aminotransferase* 28 U/L (4-50); Alkaline Phosphatase* 100 U/L (40-150); Aspartate Amino Transferase* 22 U/L (12-35); Bilirubin Total* 0.2 mg/dL (0.1-1.5); Blood Urea Nitrogen* 10 mg/dL (7-30); Calcium* 9.5 mg/dL (8.4-10.6); Carbon Dioxide* 33 mmol/L (20-32); Creatinine* 0.5 mg/dL (0.5-1.5); Estimated Glomerular Filt Rate 117 ml/min; Glucose* 220 mg/dL (60-115); Total Protein* 6.9 g/dL (6.0-8.3)
[2022-10-07 16:15] LABS: Magnesium* 1.8 mg/dL (1.5-2.6)
[2022-10-08 08:59] VITALS: BP 119/64; PULSE 80; RESP 16; TEMP 36.6; O2SAT 94
[2022-10-08] MEDS: MAGNESIUM SULFATE 2 GM, POTASSIUM CHLORIDE 10 MEQ in 0.9 % SODIUM CHLORIDE 1000 ml 1,00... IV (09:44)
[2022-10-08] MEDS: dexAMETHasone 4 MG TABLET 12 MG PO (10:46)
[2022-10-08] MEDS: FOSAPREPITANT 150 MG inj 150 MG in 0.9 % SODIUM CHLORIDE 250 ml 250 ML 510 MG IVPB (10:47)
[2022-10-08] MEDS: PALONOSETRON 0.25 MG/5 ML inj IV (10:47)
--- NOTE | 2022-10-08 15:27 | ONC.NURNOTE ---
New patient teaching for cisplatin reviewed primarily with his sister as patient was drowsy and dosing off throughout the discussion due to limited engagement by patient ad writer emphasized 3 points -stay hydrated- 64 oz or more -take antiemetics and call if nausea at home or change in breathing or fever or any other concerning changes -go to ER if fever 100.4 other information reviewed and highlighted importance in the new patient chemotherapy binder questions addressed consents/ROLANDO forms reviewed by patient and signed Nursing staff will continue to follow up with patient each week and follow up call planned for tomorrow request for SS to stop by at future appt initiated
--- NOTE | 2022-10-09 15:45 | ONC.NURNOTE ---
Post chemo follow up: patient is sleeping- copy writer spoke with reports no nausea, good fluid intake that included boost, water and juice ate dinner and breakfast noted small hand tremor copy writer suggested to use the zofran instead of compazine for nausea to continue to take doses tonight and tomorrow and then he may stop reports no further concerns
[2022-10-21 08:59] LABS: Basophils Absolute Auto 0.02 K/uL (0.00-0.30); Basophils Percent Auto 0.3 % (0.0-3.0); Eosinophils Absolute Auto 0.09 K/uL (0.00-0.50); Eosinophils Percent Auto 1.5 % (0.0-7.0); Hematocrit 39.4 % (37.0-53.0); Immature Granulocytes Abs Auto 0.02 K/uL (0.00-0.30); Immature Granulocytes Pct Auto 0.3 %; Lymphocytes Percent Auto 15.7 % (20-44); Mean Corpuscular HGB Conc 33 gm/dL (32-36); Mean Corpuscular Hemoglobin 31 pg (26-34); Mean Corpuscular Volume 93 fL (80-100); Monocytes Percent Auto 10.1 % (0.0-11.0); Neutrophils Percent Auto 72.1 % (42.0-72.0); Platelet Count* 289 K/uL (140-440); RDW Coefficient of Variation % 12.7 % (11.5-15.5); Red Blood Count 4.23 m/uL (4.30-5.90); White Blood Count* 6.12 K/uL (4.50-11.00)
[2022-10-21 09:16] LABS: Chloride* 96 mmol/L (96-114); Slide Review Reflex No
[2022-10-21 09:17] LABS: Albumin* 4.1 g/dL (3.3-5.0); Potassium* 4.4 mmol/L (3.6-5.1); Sodium* 134 mmol/L (135-149)
[2022-10-21 09:19] LABS: Creatinine* 0.5 mg/dL (0.5-1.5); Estimated Glomerular Filt Rate 117 ml/min
[2022-10-21 09:20] LABS: Alanine Aminotransferase* 31 U/L (4-50); Alkaline Phosphatase* 102 U/L (40-150); Aspartate Amino Transferase* 22 U/L (12-35); Bilirubin Total* 0.3 mg/dL (0.1-1.5); Blood Urea Nitrogen* 10 mg/dL (7-30); Carbon Dioxide* 33 mmol/L (20-32); Glucose* 156 mg/dL (60-115); Total Protein* 7.1 g/dL (6.0-8.3)
[2022-10-21 09:21] LABS: Calcium* 9.6 mg/dL (8.4-10.6); Magnesium* 1.5 mg/dL (1.5-2.6)
[2022-10-22 10:12] VITALS: BP 93/57; PULSE 78; RESP 16; TEMP 36.4; O2SAT 93
[2022-10-22] MEDS: dexAMETHasone 4 MG TABLET 12 MG PO (11:26)
[2022-10-22] MEDS: PALONOSETRON 0.25 MG/5 ML inj IV (11:45)
[2022-10-22] MEDS: FOSAPREPITANT 150 MG inj 150 MG in 0.9 % SODIUM CHLORIDE 250 ml 250 ML 510 MG IVPB (11:45)
--- NOTE | 2022-10-22 16:20 | PC.SOCIAL ---
Met with pt in [facility] today during pt's appointment. Pt was very tired and kept falling asleep during conversation. Pt apologized and stated that he was given medication for his anxiety and he was very sleepy and couldn't concentrate. Discussed pt's housing situation. Pt is currently renting and having several issues within the rental unit. Discussed that this worker would locate resources for housing for pt. Pt states it is ok to send the information in the mail, so this worker will mail information to pt. Informed pt that social work is available to him and provided the social work department phone number. This worker will plan to check in next week during his appointment to see if pt has any follow up questions.
--- NOTE | 2022-10-23 10:12 | PC.SOCIAL ---
Sent a letter and resources ([employer]) to pt for housing. [employer] assists with housing case management including working with current landlord/tenant issues. Social Work will follow up as necessary.
[2022-10-28 08:03] LABS: Basophils Percent Auto 0.5 % (0.0-3.0); Eosinophils Percent Auto 1.6 % (0.0-7.0); Hematocrit 41.3 % (37.0-53.0); Hemoglobin* 13.4 gm/dL (13.5-17.5); Immature Granulocytes Pct Auto 0.2 %; Lymphocytes Percent Auto 18.4 % (20-44); Mean Corpuscular HGB Conc 32 gm/dL (32-36); Mean Corpuscular Hemoglobin 30 pg (26-34); Mean Corpuscular Volume 92 fL (80-100); Monocytes Percent Auto 15.4 % (0.0-11.0); Neutrophils Percent Auto 63.9 % (42.0-72.0); Platelet Count* 272 K/uL (140-440); RDW Coefficient of Variation % 12.8 % (11.5-15.5); Red Blood Count 4.47 m/uL (4.30-5.90); White Blood Count* 4.41 K/uL (4.50-11.00)
[2022-10-28 08:05] LABS: Slide Review Reflex No
[2022-10-28 08:17] LABS: Albumin* 4.2 g/dL (3.3-5.0); Chloride* 98 mmol/L (96-114); Sodium* 136 mmol/L (135-149)
[2022-10-28 08:18] LABS: Potassium* 4.7 mmol/L (3.6-5.1)
[2022-10-28 08:20] LABS: Alkaline Phosphatase* 94 U/L (40-150); Aspartate Amino Transferase* 24 U/L (12-35); Bilirubin Total* 0.3 mg/dL (0.1-1.5); Blood Urea Nitrogen* 13 mg/dL (7-30); Carbon Dioxide* 34 mmol/L (20-32); Creatinine* 0.5 mg/dL (0.5-1.5); Estimated Glomerular Filt Rate 117 ml/min
[2022-10-28 08:21] LABS: Alanine Aminotransferase* 32 U/L (4-50); Calcium* 9.8 mg/dL (8.4-10.6); Glucose* 187 mg/dL (60-115); Magnesium* 1.5 mg/dL (1.5-2.6)
[2022-10-28] MEDS: dexAMETHasone 4 MG TABLET 12 MG PO (12:45)
[2022-10-28] MEDS: PALONOSETRON 0.25 MG/5 ML inj IV (12:45)
[2022-10-28] MEDS: FOSAPREPITANT 150 MG inj 150 MG in 0.9 % SODIUM CHLORIDE 250 ml 250 ML 510 MG IVPB (12:45)
[2022-11-04 08:46] LABS: Eosinophils Percent Auto 1.9 % (0.0-7.0); Hematocrit 38.9 % (37.0-53.0); Immature Granulocytes Abs Auto 0.01 K/uL (0.00-0.30); Immature Granulocytes Pct Auto 0.2 %; Lymphocytes Percent Auto 12.2 % (20-44); Mean Corpuscular HGB Conc 33 gm/dL (32-36); Mean Corpuscular Hemoglobin 31 pg (26-34); Mean Corpuscular Volume 91 fL (80-100); Monocytes Percent Auto 12.2 % (0.0-11.0); Neutrophils Percent Auto 73.5 % (42.0-72.0); Platelet Count* 171 K/uL (140-440); RDW Coefficient of Variation % 13.7 % (11.5-15.5); Red Blood Count 4.26 m/uL (4.30-5.90); White Blood Count* 5.16 K/uL (4.50-11.00)
[2022-11-04 08:53] LABS: Chloride* 97 mmol/L (96-114)
[2022-11-04 08:54] LABS: Albumin* 4.1 g/dL (3.3-5.0); Potassium* 3.8 mmol/L (3.6-5.1); Sodium* 137 mmol/L (135-149)
[2022-11-04 08:56] LABS: Bilirubin Total* 0.4 mg/dL (0.1-1.5); Creatinine* 0.4 mg/dL (0.5-1.5); Estimated Glomerular Filt Rate 126 ml/min
[2022-11-04 08:57] LABS: Alanine Aminotransferase* 30 U/L (4-50); Alkaline Phosphatase* 80 U/L (40-150); Aspartate Amino Transferase* 23 U/L (12-35); Blood Urea Nitrogen* 11 mg/dL (7-30); Calcium* 9.5 mg/dL (8.4-10.6); Carbon Dioxide* 32 mmol/L (20-32); Glucose* 191 mg/dL (60-115); Magnesium* 1.6 mg/dL (1.5-2.6); Total Protein* 6.7 g/dL (6.0-8.3)
[2022-11-04 09:03] LABS: Slide Review Reflex No
[2022-11-04] MEDS: FOSAPREPITANT 150 MG inj 150 MG in 0.9 % SODIUM CHLORIDE 250 ml 250 ML 510 MG IVPB (12:32)
[2022-11-04] MEDS: PALONOSETRON 0.25 MG/5 ML inj IV (12:32)
[2022-11-04] MEDS: dexAMETHasone 4 MG TABLET 12 MG PO (12:33)
[2022-11-11 08:37] LABS: Basophils Percent Auto 0.2 % (0.0-3.0); Hematocrit 39.2 % (37.0-53.0); Hemoglobin* 13.1 gm/dL (13.5-17.5); Immature Granulocytes Pct Auto 0.2 %; Lymphocytes Percent Auto 17.8 % (20-44); Mean Corpuscular HGB Conc 33 gm/dL (32-36); Mean Corpuscular Hemoglobin 31 pg (26-34); Mean Corpuscular Volume 91 fL (80-100); Monocytes Percent Auto 17.1 % (0.0-11.0); Neutrophils Percent Auto 62.7 % (42.0-72.0); Platelet Count* 159 K/uL (140-440); RDW Coefficient of Variation % 14.3 % (11.5-15.5); Red Blood Count 4.29 m/uL (4.30-5.90); White Blood Count* 4.04 K/uL (4.50-11.00)
[2022-11-11 08:40] LABS: Slide Review Reflex No
[2022-11-11 08:50] LABS: Albumin* 4.5 g/dL (3.3-5.0); Chloride* 95 mmol/L (96-114); Sodium* 136 mmol/L (135-149)
[2022-11-11 08:53] LABS: Alanine Aminotransferase* 28 U/L (4-50); Alkaline Phosphatase* 80 U/L (40-150); Aspartate Amino Transferase* 22 U/L (12-35); Bilirubin Total* 0.5 mg/dL (0.1-1.5); Blood Urea Nitrogen* 10 mg/dL (7-30); Calcium* 10.1 mg/dL (8.4-10.6); Carbon Dioxide* 35 mmol/L (20-32); Creatinine* 0.5 mg/dL (0.5-1.5); Estimated Glomerular Filt Rate 117 ml/min; Glucose* 96 mg/dL (60-115); Total Protein* 7.3 g/dL (6.0-8.3)
[2022-11-11 08:54] LABS: Magnesium* 1.6 mg/dL (1.5-2.6)
[2022-11-11] MEDS: dexAMETHasone 4 MG TABLET 12 MG PO (12:05)
[2022-11-11] MEDS: PALONOSETRON 0.25 MG/5 ML inj IV (12:06)
[2022-11-11] MEDS: FOSAPREPITANT 150 MG inj 150 MG in 0.9 % SODIUM CHLORIDE 250 ml 250 ML 510 MG IVPB (12:06)
--- NOTE | 2022-11-12 10:47 | ONC.NURNOTE ---
Per patient request called in refill of Senna-S 2 pills BID #120, 1 refill to [facility].
[2022-11-18 08:42] LABS: Basophils Percent Auto 0.3 % (0.0-3.0); Eosinophils Percent Auto 1.4 % (0.0-7.0); Hematocrit 36.6 % (37.0-53.0); Hemoglobin* 12.3 gm/dL (13.5-17.5); Lymphocytes Percent Auto 16.2 % (20-44); Mean Corpuscular HGB Conc 34 gm/dL (32-36); Mean Corpuscular Hemoglobin 31 pg (26-34); Mean Corpuscular Volume 91 fL (80-100); Monocytes Percent Auto 14.5 % (0.0-11.0); Neutrophils Percent Auto 67.6 % (42.0-72.0); Platelet Count* 145 K/uL (140-440); RDW Coefficient of Variation % 14.9 % (11.5-15.5); Red Blood Count 4.01 m/uL (4.30-5.90); White Blood Count* 3.45 K/uL (4.50-11.00)
[2022-11-18 08:46] LABS: Slide Review Reflex No
[2022-11-18 08:57] LABS: Albumin* 4.3 g/dL (3.3-5.0); Chloride* 96 mmol/L (96-114); Potassium* 4.6 mmol/L (3.6-5.1); Sodium* 136 mmol/L (135-149)
[2022-11-18 08:59] LABS: Bilirubin Total* 0.4 mg/dL (0.1-1.5); Carbon Dioxide* 36 mmol/L (20-32); Creatinine* 0.4 mg/dL (0.5-1.5); Estimated Glomerular Filt Rate 126 ml/min
[2022-11-18 09:00] LABS: Alanine Aminotransferase* 25 U/L (4-50); Alkaline Phosphatase* 87 U/L (40-150); Aspartate Amino Transferase* 21 U/L (12-35); Blood Urea Nitrogen* 12 mg/dL (7-30); Calcium* 9.8 mg/dL (8.4-10.6); Glucose* 228 mg/dL (60-115); Total Protein* 7.2 g/dL (6.0-8.3)
[2022-11-18 09:01] LABS: Magnesium* 1.7 mg/dL (1.5-2.6)
[2022-11-18] MEDS: FOSAPREPITANT 150 MG inj 150 MG in 0.9 % SODIUM CHLORIDE 250 ml 250 ML 510 MG IVPB (11:43)
[2022-11-18] MEDS: dexAMETHasone 4 MG TABLET 12 MG PO (11:43)
[2022-11-18] MEDS: PALONOSETRON 0.25 MG/5 ML inj IV (11:43)
[2022-11-20 09:08] VITALS: BP 108/68; PULSE 88; RESP 16; TEMP 36.1; O2SAT 96
[2022-11-20] MEDS: 0.9 % SODIUM CHLORIDE 1000 ml 1,000 ML IV (10:45)
--- NOTE | 2022-11-22 12:26 | ONC.NURNOTE ---
Called [facility]. He states didnt know about coming in today. states doesnt want to come in due to the roads. states drinking enough fluids.
[2022-11-28 10:00] VITALS: BP 134/74; PULSE 100; RESP 18; TEMP 36.7; O2SAT 96
[2022-11-28 10:28] LABS: Basophils Percent Auto 0.4 % (0.0-3.0); Eosinophils Percent Auto 0.4 % (0.0-7.0); Hematocrit 35.9 % (37.0-53.0); Hemoglobin* 12.4 gm/dL (13.5-17.5); Immature Granulocytes Pct Auto 0.4 %; Lymphocytes Percent Auto 17.5 % (20-44); Mean Corpuscular HGB Conc 35 gm/dL (32-36); Mean Corpuscular Hemoglobin 31 pg (26-34); Mean Corpuscular Volume 90 fL (80-100); Monocytes Percent Auto 22.6 % (0.0-11.0); Neutrophils Percent Auto 58.7 % (42.0-72.0); Platelet Count* 188 K/uL (140-440); RDW Coefficient of Variation % 16.7 % (11.5-15.5); Red Blood Count 3.99 m/uL (4.30-5.90); White Blood Count* 2.52 K/uL (4.50-11.00)
[2022-11-28 10:29] LABS: Slide Review Reflex No
[2022-11-28 10:34] LABS: Sodium* 133 mmol/L (135-149)
[2022-11-28 10:52] LABS: Albumin* 4.1 g/dL (3.3-5.0); Chloride* 97 mmol/L (96-114)
[2022-11-28 10:53] LABS: Potassium* 4.2 mmol/L (3.6-5.1)
[2022-11-28 10:55] LABS: Alkaline Phosphatase* 94 U/L (40-150); Aspartate Amino Transferase* 31 U/L (12-35); Bilirubin Total* 0.4 mg/dL (0.1-1.5); Blood Urea Nitrogen* 13 mg/dL (7-30); Carbon Dioxide* 29 mmol/L (20-32); Creatinine* 0.5 mg/dL (0.5-1.5); Estimated Glomerular Filt Rate 117 ml/min
[2022-11-28 10:56] LABS: Alanine Aminotransferase* 31 U/L (4-50); Calcium* 9.5 mg/dL (8.4-10.6); Glucose* 175 mg/dL (60-115); Magnesium* 1.7 mg/dL (1.5-2.6)
[2022-11-28] MEDS: 0.9 % SODIUM CHLORIDE 1000 ml 1,000 ML 900 ML IV (11:03)
[2022-11-28 11:06] VITALS: BP 125/73; PULSE 86; RESP 16; TEMP 37.3; O2SAT 92
--- NOTE | 2022-11-28 14:31 | ONC.NURNOTE ---
[facility] application for emergency financial assistance was completed by [employer] r[employer] writer and faxed to [phone]
[2022-12-06 10:16] VITALS: BP 126/67; PULSE 89; RESP 16; TEMP 36.7; O2SAT 94
[2022-12-06 10:30] LABS: Albumin* 4.2 g/dL (3.3-5.0); Chloride* 99 mmol/L (96-114); Sodium* 135 mmol/L (135-149)
[2022-12-06 10:31] LABS: Potassium* 4.3 mmol/L (3.6-5.1)
[2022-12-06 10:33] LABS: Alkaline Phosphatase* 84 U/L (40-150); Aspartate Amino Transferase* 28 U/L (12-35); Bilirubin Total* 0.4 mg/dL (0.1-1.5); Blood Urea Nitrogen* 9 mg/dL (7-30); Carbon Dioxide* 29 mmol/L (20-32); Creatinine* 0.4 mg/dL (0.5-1.5); Estimated Glomerular Filt Rate 126 ml/min; Total Protein* 7.3 g/dL (6.0-8.3)
[2022-12-06 10:34] LABS: Alanine Aminotransferase* 25 U/L (4-50); Calcium* 9.9 mg/dL (8.4-10.6); Glucose* 152 mg/dL (60-115); Magnesium* 1.5 mg/dL (1.5-2.6)
[2022-12-06] MEDS: 0.9 % SODIUM CHLORIDE 1000 ml 1,000 ML IV (10:59)
[2022-12-10 11:41] LABS: Chloride* 100 mmol/L (96-114); Sodium* 138 mmol/L (135-149)
[2022-12-10 11:42] LABS: Potassium* 4.3 mmol/L (3.6-5.1)
[2022-12-10 11:43] VITALS: BP 121/64; PULSE 97; RESP 16; TEMP 36.4; O2SAT 96
[2022-12-10 11:44] LABS: Blood Urea Nitrogen* 7 mg/dL (7-30); Carbon Dioxide* 33 mmol/L (20-32); Creatinine* 0.4 mg/dL (0.5-1.5); Estimated Glomerular Filt Rate 126 ml/min
[2022-12-10 11:45] LABS: Glucose* 90 mg/dL (60-115); Magnesium* 1.5 mg/dL (1.5-2.6)
[2022-12-10] MEDS: 0.9 % SODIUM CHLORIDE 1000 ml 1,000 ML 1100 ML IV (11:45)
[2022-12-18 11:31] VITALS: BP 128/64; PULSE 96; RESP 16; TEMP 36.6; O2SAT 96
[2022-12-18 11:51] LABS: Chloride* 100 mmol/L (96-114); Potassium* 3.6 mmol/L (3.6-5.1); Sodium* 138 mmol/L (135-149)
[2022-12-18 11:53] LABS: Creatinine* 0.4 mg/dL (0.5-1.5); Estimated Glomerular Filt Rate 126 ml/min
[2022-12-18 11:54] LABS: Blood Urea Nitrogen* 11 mg/dL (7-30); Calcium* 9.7 mg/dL (8.4-10.6); Carbon Dioxide* 32 mmol/L (20-32); Glucose* 106 mg/dL (60-115)
[2022-12-18] MEDS: 0.9 % SODIUM CHLORIDE 1000 ml 1,000 ML IV (12:02)
--- NOTE | 2022-12-18 15:10 | ONC.NURNOTE ---
Patient up 5 pounds and is drinking 4-6 boost and 4-6 liters of water. Patient doing well and will follow up in [place] and with radiation oncology in early January. Radiation Oncology notified
== END 2023-03-25 23:59 | disposition home or self-care (01) ==
LOC: CCIC 11:00
PROVIDERS: Clinical Nurse Specialist; PCP Internal Medicine Hematology & Oncology; Referring Provider Internal Medicine Hematology & Oncology; Visit Provider Internal Medicine Hematology & Oncology
DX: C06.9 Malignant neoplasm of mouth, unspecified (principal)
CPT/HCPCS: 36415; 80048; 80053; 83735; 85025; 96360; 96365; 96366; 96376; 96413; 99202; 99204; 99205; 99211; 99212; 99214; 99215; A9270; J1453; J2469; J3475; J3480; J7030; J7050; J7120; J9060